=== PATIENT | female | born 1975 | race Caucasian/White ===

== ENCOUNTER → 2017-11-19 11:59 | Outpatient (CLI) | payer BC, SELFPAY ==
--- NOTE | 2017-11-19 11:59 | DT_ITS ---
This patient was seen during an EMR downtime November 18, 2017 - November 25, 2017. This patient may have a combination of paper and electronic documentation or all paper documentation. All documentation is viewable within the e-chart portion of [employer] for each patient visit.
[2017-11-25 20:25] LABS: BUN 7 mg/dL (7-18); Glucose 88 mg/dL (74-106)
[2017-11-25 20:26] LABS: ALB/GLOB Ratio 1.5 RATIO (0.9-2.4); AST(SGOT) 14 U/L (15-37); Alanine Aminotransfer ALT/SGPT 20 U/L (13-56); Alkaline Phosphatase 52 U/L (45-117); Anion Gap 9 (5-15); BUN/Creat Ratio 10.4 RATIO (10-20); Calcium,Total 8.5 mg/dL (8.5-10.1); Chloride 107 mmol/L (98-107); Creatinine, Serum 0.67 mg/dL (0.55-1.02); EST Glomerular Filtration Rate 103 mL/min (>60); Est Glom Filt Rate - Afr Amer 125 mL/min (>60); Globulin 2.7 g/dL (2.2-4.2); Potassium 4.3 mmol/L (3.5-5.1); Protein, Total 6.7 g/dL (6.4-8.2); Sodium Level 142 mmol/L (136-145); Thyroid Stim Hormone (TSH) < 0.01 uIU/mL (0.358-3.74)
== END ==
PROVIDERS: Visit Provider Internal Medicine Endocrinology, Diabetes & Metabolism
DX: E03.8 Other specified hypothyroidism (principal)
CPT/HCPCS: 80053; 84443

== ENCOUNTER 2018-03-05 09:55 | Emergency (ER) | payer BC, SELFPAY ==
[2018-03-05 09:56] VITALS: BP 129/83; PULSE 65; RESP 16; TEMP 36.2; O2SAT 100; BMI 29.2
--- NOTE | 2018-03-05 10:25 | VDLE_ITS ---
Reason For Study: pain RIGHT LEFT GSV is normal. CFV is compressible, spontaneous, phasic, CFV is compressible, spontaneous, phasic, competent, and demonstrates normal competent and demonstrates normal augmentation. augmentation. FV is compressible, spontaneous, phasic, competent and demonstrates normal augmentation. POP V is compressible, spontaneous, phasic, competent and demonstrates normal augmentation. T/P Trunk is compressible. PTV is compressible. RT PerV is compressible. Procedure Exam performed portable in ED. The exam was diagnostic. A preliminary report was called and/or faxed to Dr. Bee. Interpretation Summary There is no evidence of right lower extremity deep vein thrombosis. Right greater saphenous vein appears patent and compressible segmentally. Normal flow patterns left common femoral vein. Ordering Physician: Valencia Bee Performed By: Sandeep Go RVT
--- NOTE | 2018-03-05 11:02 | ED.VISSUMM ---
- ER Visit Summary Date of Service: 03/05/18 Chief Complaint: [Right calf pain] History of Present Illness: The patient is a 42 F [presents the emergency department complaint of right calf pain that started 2 days ago. Patient denies any significant trauma other than she may have slightly rested against the tailgate of a pickup truck when she was getting into a pickup truck about a week ago. Patient denies any chest pain or shortness of breath. Patient has some mild discomfort at rest. She denies recent travel or surgery. She is not on any hormone replacement. Patient is concerned because she has had a prior DVT in the right leg after surgery.] Physical Examination: [HEENT-PERRLA, EOMI. Cranial nerves II through XII grossly intact. TMs clear. Mucous membranes moist. No adenopathy. Cardiovascular-regular rate and rhythm without murmur or ectopy Lungs-clear to auscultation, chest wall stable without crepitus or subcu emphysema Abdomen-normoactive bowel sounds, soft, nontender, no rebound or rigidity, no peritoneal signs. Extremities-intact ?4, normal range of motion, normal pulses, atraumatic]. Right calf-patient has some mild tenderness to mid calf. No ropes or cords palpated. Positive Homans sign. Test Results: [Venous duplex of the right lower extremity obtained was negative for DVT.] Emergency Department Course and Treatment: [] Treatment Plan: [Patient advised use ibuprofen or Tylenol for discomfort. Patient to follow-up with her primary care physician in 5-7 days.] Disposition: [Discharged home in stable condition] Impression: [Right calf strain] This note was generated with [employer]* dictation software. It may contain incorrect words, spelling, and punctuation that were not noted in review of the chart prior to signing ED Disposition - Plan for ED Patient: Chief Complaint: Lower Extremity Injury Referrals: Kamar Sanchez DO [Primary Care Provider] -
--- NOTE | 2018-03-05 11:04 | ED.DEP ---
ED Disposition - Plan for ED Patient: Chief Complaint: Lower Extremity Injury Instructions: ED Strain Muscle Ext Referrals: Kamar Sanchez DO [Primary Care Provider] - 5-7 Days
== END 2018-03-05 11:46 | disposition home or self-care (01) ==
PROVIDERS: Emergency Provider Emergency Medicine; Family Provider Family Medicine; PCP Family Medicine
DX: S86.111A Strain of other muscle(s) and tendon(s) of posterior muscle group at lower leg level, right leg, initial encounter (principal); E03.9 Hypothyroidism, unspecified; Z86.718 Personal history of other venous thrombosis and embolism; Z79.899 Other long term (current) drug therapy; X58.XXXA Exposure to other specified factors, initial encounter; Y93.89 Activity, other specified; Y92.89 Other specified places as the place of occurrence of the external cause; Y99.8 Other external cause status
CPT/HCPCS: 93971; 99282

== ENCOUNTER → 2018-07-09 12:34 | Outpatient (CLI) | payer BC, SELFPAY ==
[2018-07-09 13:13] LABS: Vitamin D,25 Hydroxy 18.1 ng/mL (29.95-100.01)
[2018-07-09 13:17] LABS: ALB/GLOB Ratio 1.4 RATIO (0.9-2.4); AST(SGOT) 15 U/L (15-37); Alanine Aminotransfer ALT/SGPT 25 U/L (13-56); Albumin, Serum 4.1 g/dL (3.2-5.0); Alkaline Phosphatase 45 U/L (45-117); Anion Gap 6 (5-15); BUN 12 mg/dL (7-18); BUN/Creat Ratio 16.1 RATIO (10-20); Calcium,Total 8.7 mg/dL (8.5-10.1); Chloride 110 mmol/L (98-107); Creatinine, Serum 0.74 mg/dL (0.55-1.02); EST Glomerular Filtration Rate 91 mL/min (>60); Est Glom Filt Rate - Afr Amer 110 mL/min (>60); Glucose 81 mg/dL (74-106); Protein, Total 7.1 g/dL (6.4-8.2); Sodium Level 142 mmol/L (136-145); Thyroid Stim Hormone (TSH) 1.95 uIU/mL (0.358-3.74)
--- OUTSIDE RECORDS SUMMARY | 2018-09-10 11:39 | XMS RPT_ITS ---
:1975 Author Organization OHIP Care Team Providers Name Role Phone ANN-MARIE VILLASEÑOR Attending Unavailable ANN-MARIE VILLASEÑOR Referring Unavailable Kamar Sanchez Primary Care Unavailable ANN-MARIE VILLASEÑOR Attending Unavailable Kamar Sanchez Primary Care Unavailable Valencia Bee Attending Unavailable Antione Head Attending Unavailable Valencia Bee Referring Unavailable PROBLEMS PROBLEMS DATE TYPE CONDITION / CODE ATTENDING STATUS SOURCE 07/09/2018 Unknown E03.8 - Other ANN-MARIE VILLASEÑOR Active [facility] specified Community hypothyroidism / Hospital E03.8(ICD-10) Repository 07/09/2018 Unknown E55.9 - Vitamin D ANN-MARIE VILLASEÑOR Active [place] deficiency, Community unspecified / Hospital E55.9(ICD-10) Repository 04/08/2018 Unknown M79.661 - Pain in [place] Active [place] right lower leg / Community M79.661(ICD-10) Hospital Repository PROCEDURES PROCEDURES No Procedure Records FoundRESULTS RESULTS VITAMIN D,25 HYDROXY Collected: 07/09/2018 Status: F Source: [place] 9:10 AM [facility] REPOSITORY TYPE CODE TESTS RESULT OUT OF REFERENCE UNITS RANGE LAB L506.1000 29.95-100.01 ng/mL Low Vitamin D 18.1 25-OH Result Comment: Vitamin D 25(OH) Status Range Deficiency <20 ng/mL (50nmol/L) Insuffciency 20 - 30 ng/mL (50 - 75 nmol/L) Sufficiency 30 - 100 ng/mL (75 - 250 nmol/L) Toxicity >100 ng/mL (>250 nmol/L) Performed By: #### L506.1000 #### [facility] [place], [address] COMPREHENSIVE METABOLIC Collected: 07/09/2018 Status: F Source: [place] PROFIL 9:10 AM [facility] REPOSITORY TYPE CODE TESTS RESULT OUT OF RANGE REFERENCE UNITS LAB L501.0100 74-106 mg/dL Normal GLU 81 Result Comment: Please note revised GLUCOSE reference range effective 2017. LAB L501.1000 7-18 mg/dL Normal BUN 12 LAB L501.1100 0.55-1.02 mg/dL Normal CREAT,SERUM 0.74 Result Comment: The validity of the calculated GFR AND GFRAA in patients over 70 years has not been determined. Clinical correlation is essential. LAB L501.1110 >60 mL/min Normal EST GFR 91 Result Comment: Non- GFR Calc LAB L501.1115 >60 mL/min Normal EST GFR - AA 110 Result Comment: GFR Calc LAB L501.1300 10-20 RATIO Normal BUN/CRE 16.1 LAB L501.1500 6.4-8.2 g/dL T Normal PROT 7.1 LAB L501.1800 3.2-5.0 g/dL Normal ALB 4.1 LAB L501.1950 2.2-4.2 g/dL Normal GLOB 3.0 LAB L501.2000 0.9-2.4 RATIO Normal A/G 1.4 LAB L501.2200 8.5-10.1 mg/dL CA Normal 8.7 LAB L501.4100 15-37 U/L Normal AST 15 LAB L501.4305 45-117 U/L Normal ALK P 45 LAB L501.4405 13-56 U/L Normal ALT 25 LAB L501.4600 0.20-1.00 mg/dL T Normal BILI 0.50 LAB L501.5300 136-145 mmol/L NA Normal 142 LAB L501.5600 3.5-5.1 mmol/L K Normal 4.0 LAB L501.5900 98-107 mmol/L High CL 110 LAB L501.6100 21.0-32.0 mmol/L Normal CO2 26.0 LAB L501.6200 5-15 Normal GAP 6 Performed By: #### L500.4050, L501.9520 #### [facility] [address] [place], [address] THYROID STIM HORMONE Collected: 07/09/2018 Status: F Source: [place] (TSH) 9:10 AM [facility] REPOSITORY TYPE CODE TESTS RESULT OUT OF RANGE REFERENCE UNITS LAB L501.9520 0.358-3.74 uIU/mL Normal TSH 1.95 Performed By: #### L500.4050, L501.9520 #### [facility] [address] [place], [address] VENOUS DUPLEX LOWER Observed: 03/05/2018 Status: F Source: [place] EXTREMITY 4:29 PM [facility] REPOSITORY [place] [address] [facility] [address] Venous Duplex US, Unilateral 03/05/18 1047 MR#: [id number] Acct: [id number] Name: APOORVA WOO Rep #: [id number] : 1975 42 From: Antione Head MD Attending Dr: Status: DEP ER Ordering Dr: Valencia Bee DO Date: 03/05/18 Location: ED Sex: F C Admitted: Reason For Study: pain RIGHT LEFT GSV is normal. CFV is compressible, spontaneous, phasic, CFV is compressible, spontaneous, phasic, competent, and demonstrates normal competent and demonstrates normal augmentation. augmentation. FV is compressible, spontaneous, phasic, competent and demonstrates normal augmentation. POP V is compressible, spontaneous, phasic, competent and demonstrates normal augmentation. T/P Trunk is compressible. PTV is compressible. RT PerV is compressible. Procedure Exam performed portable in ED. The exam was diagnostic. A preliminary report was called and/or faxed to Dr. Bee. Interpretation Summary There is no evidence of right lower extremity deep vein thrombosis. Right greater saphenous vein appears patent and compressible segmentally. Normal flow patterns left common femoral vein. Ordering Physician: Valencia Bee Performed By: Sandeep Go RVT 03/05/188 Date Antione Head MD CC: Kamar Sanchez DO; Valencia Bee DO Date Dictated: 03/05/18 1047 Date Transcribed: 03/05/181627 Wrecking Mechanic: Signed DISCHARGE INSTRUCTION Observed: 03/05/2018 Status: F Source: [place] 11:05 AM [facility] Medical Records Department [address] [place] [address] [place] [address] Discharge Instruction 03/05/18 1104 MR#: [id number] Acct: [id number] Name: APOORVA WOO Rep #: [id number] : 1975 42 From: Valencia Bee DO PCP: Kamar Sanchez DO Status: REG ER ED Disposition - Plan for ED Patient: Chief Complaint: Lower Extremity Injury Instructions: ED Strain Muscle Ext Referrals: Kamar Sanchez DO [Primary Care Provider] - 5-7 Days What to do if you have Problems For any increased pain, shortness of breath, bleeding, nausea or vomiting, chest pain, or any unexpected problems, contact your Primary Care Provider. Call [facility] ([phone]) or report to the closest Emergency Room. Call 911 if necessary. 03/05/18 1105 <Electronically signed by Valencia Bee DO> Date Valencia Bee DO Cosigner Signature (If Indicated): Date CC: Kamar Sanchez DO EMERGENCY DEPARTMENT Observed: 03/05/2018 Status: F Source: [place] SUMMARY 11:04 [facility] Medical Records Department [address] [place] [address] Emergency Department Summary 03/05/18 1102 MR#: [id number] Acct: [id number] Name: APOORVA WOO Rep #: [id number] : 1975 42 From: Valencia Bee DO PCP: Kamar Sanchez DO Status: REG ER - ER Visit Summary Date of Service: 03/05/18 Chief Complaint: [Right calf pain] History of Present Illness: The patient is a 42 F [presents the emergency department complaint of right calf pain that started 2 days ago. Patient denies any significant trauma other than she may have slightly rested against the tailgate of a pickup truck when she was getting into a pickup truck about a week ago. Patient denies any chest pain or shortness of breath. Patient has some mild discomfort at rest. She denies recent travel or surgery. She is not on any hormone replacement. Patient is concerned because she has had a prior DVT in the right leg after surgery.] Physical Examination: [HEENT-PERRLA, EOMI. Cranial nerves II through XII grossly intact. TMs clear. Mucous membranes moist. No adenopathy. Cardiovascular-regular rate and rhythm without murmur or ectopy Lungs-clear to auscultation, chest wall stable without crepitus or subcu emphysema Abdomen-normoactive bowel sounds, soft, nontender, no rebound or rigidity, no peritoneal signs. Extremities-intact 4, normal range of motion, normal pulses, atraumatic]. Right calf-patient has some mild tenderness to mid calf. No ropes or cords palpated. Positive Homans sign. Test Results: [Venous duplex of the right lower extremity obtained was negative for DVT.] Emergency Department Course and Treatment: [] Treatment Plan: [Patient advised use ibuprofen or Tylenol for discomfort. Patient to follow-up with her primary care physician in 5-7 days.] Disposition: [Discharged home in stable condition] Impression: [Right calf strain] This note was generated with Ansible dictation software. It may contain incorrect words, spelling, and punctuation that were not noted in review of the chart prior to signing ED Disposition - Plan for ED Patient: Chief Complaint: Lower Extremity Injury Referrals: Kamar Sanchez DO [Primary Care Provider] - What to do if you have Problems For any increased pain, shortness of breath, bleeding, nausea or vomiting, chest pain, or any unexpected problems, contact your Primary Care Provider. Call [facility] ([phone]) or report to the closest Emergency Room. Call 911 if necessary. 03/05/18 1104 <Electronically signed by Valencia Bee DO> Date Valencia Bee DO Cosigner Signature (If Indicated): Date CC: Kamar Sanchez DO DOWNTIME REPORT Observed: 12/05/2017 Status: F Source: [place] 1:36 PM [facility] REPOSITORY [place] Medical Records Department [address] [place] [address] Downtime Report MR#: [id number] Acct: [id number] Name: APOORVA WOO Rep #: [id number] : 1975 42 From: James Alvarez PCP: Status: REG CLI This patient was seen during an EMR downtime November 18, 2017 - November 25, 2017. This patient may have a combination of paper and electronic documentation or all paper documentation. All documentation is viewable within the e-chart portion of [employer] for each patient visit. COMPREHENSIVE METABOLIC Collected: 11/19/2017 Status: F Source: [place] PROFIL 11:59 AM [facility] REPOSITORY Order Comment: RESULT(S) PREVIOUSLY REPORTED ON MANUAL REQUISITION DURING DOWNTIME. TYPE CODE TESTS RESULT OUT OF RANGE REFERENCE UNITS LAB L501.0100 74-106 mg/dL Normal GLU 88 Result Comment: Please note revised GLUCOSE reference range effective 2017. LAB L501.1000 7-18 mg/dL Normal BUN 7 LAB L501.1100 0.55-1.02 mg/dL Normal CREAT,SERUM 0.67 Result Comment: The validity of the calculated GFR AND GFRAA in patients over 70 years has not been determined. Clinical correlation is essential. LAB L501.1110 >60 mL/min Normal EST GFR 103 LAB L501.1115 >60 mL/min Normal EST GFR - AA 125 LAB L501.1300 10-20 RATIO Normal BUN/CRE 10.4 LAB L501.1500 6.4-8.2 g/dL Normal T PROT 6.7 LAB L501.1800 3.2-5.0 g/dL Normal ALB 4.0 LAB L501.1950 2.2-4.2 g/dL Normal GLOB 2.7 LAB L501.2000 0.9-2.4 RATIO Normal A/G 1.5 LAB L501.2200 8.5-10.1 mg/dL Normal CA 8.5 LAB L501.4100 15-37 U/L Low AST 14 LAB L501.4305 45-117 U/L Normal ALK P 52 LAB L501.4405 13-56 U/L Normal ALT 20 LAB L501.4600 0.20-1.00 mg/dL Normal T BILI 0.30 LAB L501.5300 136-145 mmol/L Normal NA 142 LAB L501.5600 3.5-5.1 mmol/L Normal K 4.3 LAB L501.5900 98-107 mmol/L Normal CL 107 LAB L501.6100 21.0-32.0 mmol/L Normal CO2 26.0 LAB L501.6200 5-15 Normal GAP 9 Performed By: #### L500.4050, L501.9520 #### [facility] [address] [facility] [place], [address] THYROID STIM HORMONE Collected: 11/19/2017 Status: F Source: [place] (TSH) 11:59 AM [facility] REPOSITORY Order Comment: RESULT(S) PREVIOUSLY REPORTED ON MANUAL REQUISITION DURING DOWNTIME. TYPE CODE TESTS RESULT OUT OF RANGE REFERENCE UNITS LAB L501.9520 0.358-3.74 uIU/mL Low TSH < 0.01 Performed By: #### L500.4050, L501.9520 #### [facility] [address] [facility] [place], [address] PROGRESS Observed: 10/09/2017 Status: COMPLETED Source: [place] 10:[address] [facility] REPOSITORY HNO ID: [id number] Author: Silva Ng Service: (none) Author Type: Nurse Practitioner Type: Progress Notes Filed: 10/09/2017 10:46 AM Note Text: Subjective HPI HPI February Diane Woo is a 42 year old female who presents today for CC of cough, nasal pressure. This started almost 3 weeks ago. Has tried otc medication. Symptoms are worsened by nothing. Risk factors sick exposures at work. .Patient presents with: fever, cough, ST and head and chest congestion: x almost 3 weeks PAST MEDICAL HISTORY Diagnosis Date - Chronic interstitial cystitis PAST SURGICAL HISTORY Procedure Laterality Date - LIGATE FALLOPIAN TUBE Tubal ligation - PAST SURGICAL HISTORY OF 2000 reconstructive jaw surgery - PAST SURGICAL HISTORY OF 2004, 2007 TMJ surgery ALLERGIES Morphine; Sulfa (Sulfonamide Antibiotics) MEDICATIONS levothyroxine (LEVOTHROID) 100 mcg tablet Take 100 mcg by mouth daily before breakfast. FAMILY HISTORY Problem Relation Age of Onset - Hypertension Father - Diabetes Mother - Breast Cancer Paternal Grandmother Social History Substance Use Topics - Smoking status: Former Smoker - Smokeless tobacco: Never Used Comment: quit 08/09/2007 - Alcohol use Yes Comment: occasional Review of Systems Constitutional: Negative for chills, fever and weight loss. HENT: Positive for congestion and sore throat. Negative for ear pain and nosebleeds. Respiratory: Positive for cough. Negative for shortness of breath and wheezing. Cardiovascular: Negative for chest pain. Musculoskeletal: Negative for neck pain. Objective Blood pressure 102/68, pulse 90, temperature 36.8 ?C (98.3 ?F), temperature source Tympanic, resp. rate 18, weight 68.4 kg (150 lb 12.8 oz), SpO2 97 %. Physical Exam Constitutional: She is oriented to person, place, and time and well-developed, well-nourished, and in no distress. Non-toxic appearance. She has a sickly appearance (mild). No distress. HENT: Head: Normocephalic and atraumatic. Right Ear: Hearing, tympanic membrane, external ear and ear canal normal. Left Ear: Hearing, tympanic membrane, external ear and ear canal normal. Nose: Right sinus exhibits maxillary sinus tenderness. Left sinus exhibits maxillary sinus tenderness. Mouth/Throat: Uvula is midline, oropharynx is clear and moist and mucous membranes are normal. Eyes: Conjunctivae and lids are normal. Pupils are equal, round, and reactive to light. Right eye exhibits no discharge. Left eye exhibits no discharge. No scleral icterus. Neck: Trachea normal and normal range of motion. Neck supple. Cardiovascular: Normal rate, regular rhythm and normal heart sounds. Pulmonary/Chest: Effort normal and breath sounds normal. Lymphadenopathy: She has no cervical adenopathy. Neurological: She is alert and oriented to person, place, and time. Skin: No rash noted. She is not diaphoretic. ASSESSMENT/PLAN: 1. Sinobronchitis - ICD9: 473.9, 490, ICD10: J32.9, J40 - Will begin treatment with Doxycline - Supportive care with plenty of fluids, rest, and analgesia prn. - Follow up in 3-5 days if symptoms persist or worsen. - DOXYCYCLINE MONOHYDRATE 100 MG TABLET - PREDNISONE 20 MG TABLET Prescription instructions reviewed with patient as applicable. Patient advised if symptoms do not improve or if symptoms worsen sooner, to contact the office for further evaluation by their primary care physician. Potential red flag symptoms discussed with the patient. Reviewed appropriate action plan to take if red flag symptoms occur. Patient agreeable to treatment plan. Silva Ng APRN.CNP CNOV Observed: 10/09/2017 Status: COMPLETED Source: [place] 10:[address] [facility] REPOSITORY Office Visit (WSTR) APOORVA WOO ([id number]) 1975 F Date Time Provider Department 10/09/17 10:00 AM SILVA NG (RASHIDA) [facility] During your visit today, we recorded the following information about you: Temperature Pulse Respiration Blood pressure 98.3 degrees 90/minute 18/minute 102/68 Weight 68.4 kg Silva Ng APRN.CNP 10/09/2017 10:46 AM Signed Subjective HPI HPI Apoorva M Tonny is a 42 year old female who presents today for CC of cough, nasal pressure. This started almost 3 weeks ago. Has tried otc medication. Symptoms are worsened by nothing. Risk factors sick exposures at work. .Patient presents with: fever, cough, ST and head and chest congestion: x almost 3 weeks PAST MEDICAL HISTORY Diagnosis Date - Chronic interstitial cystitis PAST SURGICAL HISTORY Procedure Laterality Date - LIGATE FALLOPIAN TUBE Tubal ligation - PAST SURGICAL HISTORY OF 2000 reconstructive jaw surgery - PAST SURGICAL HISTORY OF 2004, 2007 TMJ surgery ALLERGIES Morphine; Sulfa (Sulfonamide Antibiotics) MEDICATIONS levothyroxine (LEVOTHROID) 100 mcg tablet Take 100 mcg by mouth daily before breakfast. FAMILY HISTORY Problem Relation Age of Onset - Hypertension Father - Diabetes Mother - Breast Cancer Paternal Grandmother Social History Substance Use Topics - Smoking status: Former Smoker - Smokeless tobacco: Never Used Comment: quit 08/09/2007 - Alcohol use Yes Comment: occasional Review of Systems Constitutional: Negative for chills, fever and weight loss. HENT: Positive for congestion and sore throat. Negative for ear pain and nosebleeds. Respiratory: Positive for cough. Negative for shortness of breath and wheezing. Cardiovascular: Negative for chest pain. Musculoskeletal: Negative for neck pain. Objective Blood pressure 102/68, pulse 90, temperature 36.8 ?C (98.3 ?F), temperature source Tympanic, resp. rate 18, weight 68.4 kg (150 lb 12.8 oz), SpO2 97 %. Physical Exam Constitutional: She is oriented to person, place, and time and well-developed, well-nourished, and in no distress. Non-toxic appearance. She has a sickly appearance (mild). No distress. HENT: Head: Normocephalic and atraumatic. Right Ear: Hearing, tympanic membrane, external ear and ear canal normal. Left Ear: Hearing, tympanic membrane, external ear and ear canal normal. Nose: Right sinus exhibits maxillary sinus tenderness. Left sinus exhibits maxillary sinus tenderness. Mouth/Throat: Uvula is midline, oropharynx is clear and moist and mucous membranes are normal. Eyes: Conjunctivae and lids are normal. Pupils are equal, round, and reactive to light. Right eye exhibits no discharge. Left eye exhibits no discharge. No scleral icterus. Neck: Trachea normal and normal range of motion. Neck supple. Cardiovascular: Normal rate, regular rhythm and normal heart sounds. Pulmonary/Chest: Effort normal and breath sounds normal. Lymphadenopathy: She has no cervical adenopathy. Neurological: She is alert and oriented to person, place, and time. Skin: No rash noted. She is not diaphoretic. ASSESSMENT/PLAN: 1. Sinobronchitis - ICD9: 473.9, 490, ICD10: J32.9, J40 - Will begin treatment with Doxycline - Supportive care with plenty of fluids, rest, and analgesia prn. - Follow up in 3-5 days if symptoms persist or worsen. - DOXYCYCLINE MONOHYDRATE 100 MG TABLET - PREDNISONE 20 MG TABLET Prescription instructions reviewed with patient as applicable. Patient advised if symptoms do not improve or if symptoms worsen sooner, to contact the office for further evaluation by their primary care physician. Potential red flag symptoms discussed with the patient. Reviewed appropriate action plan to take if red flag symptoms occur. Patient agreeable to treatment plan. Silva Ng APRN.RASHIDA Ng APRN.CNP 10/09/2017 10:33 AM Signed ASSESSMENT/PLAN: 1. Sinobronchitis - ICD9: 473.9, 490, ICD10: J32.9, J40 - Will begin treatment with Doxycline - Supportive care with plenty of fluids, rest, and analgesia prn. - Follow up in 3-5 days if symptoms persist or worsen. - DOXYCYCLINE MONOHYDRATE 100 MG TABLET - PREDNISONE 20 MG TABLET Referring Provider: SELF [200] Allergies As of Date: 10/09/2017 Noted Allergy Reaction MORPHINE 09/08/2008 SULFA (SULFONAMIDE ANTIBIOTICS) 08/22/2007 Date Reviewed: 10/09/2017 Reviewed by: Silva (Rashida) - Fully Assessed Reason for Visit: fever, cough, ST and head and chest congestion [Other] Cmt: x almost 3 weeks Primary Visit Diagnosis:Sinobronchitis [J32.9, J40] Order(s):doxycycline monohydrate 100 mg tabletTake 1 tablet by mouth twice daily.Disp: 20 tabletRfl: 0 predniSONE (DELTASONE) 20 mg tabletTake 2 tablets by mouth once daily for 5 days.Disp: 10 tabletRfl: 0 Prescriptions as of 10/09/2017 Sig: LEVOTHYROXINE 100 MCG TABLET Take 100 mcg by mouth daily b* DOXYCYCLINE MONOHYDRATE 100 M* Take 1 tablet by mouth twice * PREDNISONE 20 MG TABLET Take 2 tablets by mouth once * Problem List As Of Date 10/09/2017 Noted Resolved Nipple discharge [N64.52] INVALID FOR* Other instructions from your clinician: ASSESSMENT/PLAN: 1. Sinobronchitis - ICD9: 473.9, 490, ICD10: J32.9, J40 - Will begin treatment with Doxycline - Supportive care with plenty of fluids, rest, and analgesia prn. - Follow up in 3-5 days if symptoms persist or worsen. - DOXYCYCLINE MONOHYDRATE 100 MG TABLET - PREDNISONE 20 MG TABLET Prescriptions ordered this encounter Disp Refills Start End DOXYCYCLINE MONOHYDRATE 100 MG TABLET 20 t* 0 10/09/2017 Cmt: May transfer to [facility] if less expensive. Route: ORAL Sig: Take 1 tablet by mouth twice daily. PREDNISONE 20 MG TABLET 10 t* 0 10/09/2017 10/14/2017 Route: ORAL Sig: Take 2 tablets by mouth once daily for 5 days. Letter Text [facility] Silva Ng CNP [address] [place], [place] [address] 10/09/2017 Apoorva Woo [facility]# [id number] [facility] [address] TO WHOM IT MAY CONCERN: This is to confirm that Apoorva Woo had an appointment and was seen at the [facility] in the Department of Urgent Care by iSlva Ng CNP on 10/09/2017. Sincerely yours, Silva Ng CNP Encounter Status:Closed by SILVA NG CNP on 10/09/17 ALLERGIES ALLERGIES DATE TYPE / CODE NAME / CODE REACTION SEVERITY SOURCE 03/05/2018 Drug Sulfa Hives Unknown [facility] Allergy/416 (Sulfonamide Hospital 533487(SNOM Antibiotics)/F0 Repository ED CT) 20513379(RXNORM ) 03/05/2018 Drug morphine/S22930 Other Unknown [facility] Allergy/416 1545(RXNORM) Hospital 952603(SNOM Repository ED CT) 09/08/2008 DRUG MORPHINE [facility] INGREDI/419 [address] [place] [address]27(SNOM Repository ED CT) 08/22/2007 Drug SULFA [facility] Class/07087 (SULFONAMIDE [place] 1003(SNOMED ANTIBIOTICS) Repository CT) ENCOUNTERS ENCOUNTERS ADMIT/DISCHARGE ACCOUNT ADMITTING ENCOUNTER LOCATION SOURCE NUMBER CLASS 07/09/2018 [id number] Ambulatory [facility] ing:LABSPEC Repository 03/05/2018/03/05/20 [id number] Emergency [address] ing:ED Repository 03/05/2018/03/05/20 [id number] Ambulatory BMSBuilding:[address] Repository 11/19/2017 [id number] Ambulatory [facility] ing:LABSPEC Repository 10/09/2017/10/11/19 [id number] Ambulatory [address] Repository PAYERS PAYERS ENCOUNTER GUARANTOR PAYER SUBSCRIBER SOURCE 07/09/2018 APOORVA Contreras Primary APOORVA [id number] Insurance:ANTHEMPolic DROUHARDDOB: [facility] y [place]: [id number] [id number] Repository [address]Ngb: (330) Date:8249-13-70LN [phone] () [id number] ZAPATA [address]12[address]EA: 07/09/2018 Secondary NOT GIVENUNK [place] Insurance:SELF PAY [facility] Number: Effective Repository Date:2018-07-09 03/05/2018 APOORVA M Primary APOORVA M [facility] [place] [id number] Insurance:ANTHEMPolic DROUHARDDOB: [facility] y Number: [id number] [id number] Repository [address]Ion: (330) Date:8740-32-66UR [phone] () [id number] ZAPATA [address]EW: 03/05/2018 Secondary NOT GIVENUNK [place] Insurance:SELF PAY [facility] Number: Effective Repository Date:2018-03-05 03/05/2018 APOORVA M Primary APOORVA M [place] [id number] Insurance:ANTHEMPolic DROUHARDDOB: [facility] y Number: [id number] [facility] [id number] Repository [address]Qzg: (330) Date:6607-88-27FG [phone] () [id number], [place] [address]YY: 03/05/2018 Secondary NOT GIVENUNK [place] Insurance:SELF PAY [facility] Number: Effective Repository Date:2018-03-05 11/19/2017 Apoorva M Primary APOORVA M [place] [id number] Insurance:ANTHEMPolic DROUHARDDOB: [facility] y Number: [id number] Colorado Long Term Acute [id number] Repository [address]Bll: (330) Date:7341-10-90JB [phone] () [id number], [place] [address]PJ: 11/19/2017 Secondary NOT GIVENUNK [place] Insurance:SELF PAY [facility] Number: Effective Repository Date:2017-11-19
== END ==
PROVIDERS: Family Provider Family Medicine; PCP Family Medicine; Referring Provider Internal Medicine Endocrinology, Diabetes & Metabolism; Visit Provider Internal Medicine Endocrinology, Diabetes & Metabolism
DX: E03.8 Other specified hypothyroidism (principal); E55.9 Vitamin D deficiency, unspecified
CPT/HCPCS: 80053; 82306; 84443

== ENCOUNTER → 2018-09-11 13:16 | Outpatient (CLI) | payer BC, SELFPAY ==
[2018-09-11 13:55] LABS: ALB/GLOB Ratio 1.8 RATIO (0.9-2.4); AST(SGOT) 24 U/L (15-37); Alanine Aminotransfer ALT/SGPT 26 U/L (13-56); Albumin, Serum 4.2 g/dL (3.2-5.0); Alkaline Phosphatase 39 U/L (45-117); Anion Gap 3 (5-15); BUN 11 mg/dL (7-18); BUN/Creat Ratio 16.6 RATIO (10-20); Calcium,Total 8.7 mg/dL (8.5-10.1); Chloride 107 mmol/L (98-107); Creatinine, Serum 0.66 mg/dL (0.55-1.02); EST Glomerular Filtration Rate 103 mL/min (>60); Est Glom Filt Rate - Afr Amer 125 mL/min (>60); Globulin 2.4 g/dL (2.2-4.2); Glucose 76 mg/dL (74-106); Protein, Total 6.6 g/dL (6.4-8.2); Sodium Level 138 mmol/L (136-145); Thyroid Stim Hormone (TSH) 2.67 uIU/mL (0.358-3.74)
[2018-09-11 13:59] LABS: Vitamin D,25 Hydroxy 49.4 ng/mL (29.95-100.01)
== END ==
PROVIDERS: Family Provider Family Medicine; PCP Family Medicine; Referring Provider Internal Medicine Endocrinology, Diabetes & Metabolism; Visit Provider Internal Medicine Endocrinology, Diabetes & Metabolism
DX: E03.8 Other specified hypothyroidism (principal); E55.9 Vitamin D deficiency, unspecified
CPT/HCPCS: 80053; 82306; 84443

== ENCOUNTER → 2018-10-02 | Outpatient (CLI) | payer BC, SELFPAY ==
--- NOTE | 2018-10-02 15:49 | BI_ITS ---
MAMMOGRAPHY - BILATERAL SCREENING REASON FOR EXAM: Female, 43 years old. Routine annual screening examination. PERTINENT HISTORY: Grandmother with breast cancer. TECHNIQUE: Digital bilateral breast kaur (3D mammographic acquisition) in the CC and MLO projections. 2-D mediolateral oblique (MLO) and craniocaudad (CC) views of both breasts were obtained. CAD: Full Field Digital Mammography with Computer Added Detection was performed. COMPARISON: Comparison is made with prior study dated May 24, 2015 and January 26, 2014. FINDINGS: Breast Composition: The breasts are heterogeneously dense, which may obscure small masses. There are no dominant masses or suspicious calcifications. No other significant abnormalities are identified. There has been no significant change since the prior study. BI/SCREENING MAMM (CAD), BILAT IMPRESSION: Stable bilateral screening mammogram. Yearly follow-up mammogram recommended. (A) ASSESSMENT CATEGORY: BIRADS Category 1: Negative. A letter regarding these results will be sent to the patient by the facility within 30 days. Approximately 10% of breast cancers are not detected by mammography. A normal mammogram should not delay biopsy of a clinically suspicious abnormality. [id number] Electronically Signed: Parth Bowling, at 10:01 EDT , Service support ,
== END | disposition home or self-care (01) ==
LOC: OPBI 15:46
PROVIDERS: Family Provider Family Medicine; PCP Family Medicine; Referring Provider Obstetrics & Gynecology; Visit Provider Obstetrics & Gynecology
DX: Z12.31 Encounter for screening mammogram for malignant neoplasm of breast (principal)
CPT/HCPCS: 77063; 77067

== ENCOUNTER → 2018-10-09 | Outpatient (CLI) | payer BC, SELFPAY ==
[2018-10-15 09:21] LABS: HPV Reflexed? NOT INDICATED
== END | disposition home or self-care (01) ==
LOC: WOBLAB 13:55
PROVIDERS: Family Provider Family Medicine; PCP Family Medicine; Visit Provider Obstetrics & Gynecology
DX: Z12.4 Encounter for screening for malignant neoplasm of cervix (principal)
CPT/HCPCS: 87624; 88175; G0145

== ENCOUNTER → 2018-11-20 | Outpatient (CLI) | payer BC, SELFPAY ==
[2018-11-20 14:43] LABS: Thyroid Stim Hormone (TSH) 0.77 uIU/mL (0.358-3.74)
== END | disposition home or self-care (01) ==
LOC: LABSPEC 13:42
PROVIDERS: Family Provider Family Medicine; PCP Family Medicine; Visit Provider Family Medicine
DX: E03.8 Other specified hypothyroidism (principal)
CPT/HCPCS: 84443

== ENCOUNTER → 2019-02-14 | Outpatient (CLI) | payer BC, SELFPAY ==
[2019-02-14 08:48] LABS: ALB/GLOB Ratio 1.3 RATIO (0.9-2.4); AST(SGOT) 11 U/L (15-37); Alanine Aminotransfer ALT/SGPT 20 U/L (13-56); Albumin, Serum 3.8 g/dL (3.2-5.0); Alkaline Phosphatase 44 U/L (45-117); Anion Gap 7 (5-15); BUN 8 mg/dL (7-18); BUN/Creat Ratio 10.3 RATIO (10-20); Calcium,Total 8.5 mg/dL (8.5-10.1); Chloride 110 mmol/L (98-107); Creatinine, Serum 0.78 mg/dL (0.55-1.02); EST Glomerular Filtration Rate 86 mL/min (>60); Est Glom Filt Rate - Afr Amer 104 mL/min (>60); Globulin 2.9 g/dL (2.2-4.2); Glucose 83 mg/dL (74-106); Potassium 3.7 mmol/L (3.5-5.1); Protein, Total 6.7 g/dL (6.4-8.2); Sodium Level 141 mmol/L (136-145); Thyroid Stim Hormone (TSH) 0.94 uIU/mL (0.358-3.74)
[2019-02-17 10:21] LABS: Vitamin D,25 Hydroxy 23.7 ng/mL (29.95-100.01)
== END | disposition home or self-care (01) ==
LOC: LAB 07:25
PROVIDERS: Family Provider Family Medicine; PCP Family Medicine; Referring Provider Internal Medicine Endocrinology, Diabetes & Metabolism; Visit Provider Internal Medicine Endocrinology, Diabetes & Metabolism
DX: E03.8 Other specified hypothyroidism (principal); E55.9 Vitamin D deficiency, unspecified
CPT/HCPCS: 36415; 80053; 82306; 84443

== ENCOUNTER → 2019-07-23 | Outpatient (CLI) | payer BC, SELFPAY ==
[2019-07-23 13:29] LABS: ALB/GLOB Ratio 1.3 RATIO (0.9-2.4); AST(SGOT) 15 U/L (15-37); Alanine Aminotransfer ALT/SGPT 33 U/L (13-56); Albumin, Serum 4.3 g/dL (3.2-5.0); Alkaline Phosphatase 42 U/L (45-117); Anion Gap 6 (5-15); BUN 11 mg/dL (7-18); Calcium,Total 8.9 mg/dL (8.5-10.1); Chloride 108 mmol/L (98-107); Creatinine, Serum 0.79 mg/dL (0.55-1.02); EST Glomerular Filtration Rate 85 mL/min (>60); Est Glom Filt Rate - Afr Amer 103 mL/min (>60); Globulin 3.2 g/dL (2.2-4.2); Glucose 84 mg/dL (74-106); Potassium 3.7 mmol/L (3.5-5.1); Protein, Total 7.5 g/dL (6.4-8.2); Sodium Level 139 mmol/L (136-145); Thyroid Stim Hormone (TSH) 3.63 uIU/mL (0.358-3.74)
[2019-07-23 14:18] LABS: Vitamin D,25 Hydroxy 53.2 ng/mL (29.95-100.01)
== END | disposition home or self-care (01) ==
LOC: LABSPEC 12:24
PROVIDERS: PCP Family Medicine; Referring Provider Internal Medicine Endocrinology, Diabetes & Metabolism; Visit Provider Internal Medicine Endocrinology, Diabetes & Metabolism
DX: E03.8 Other specified hypothyroidism (principal); E55.9 Vitamin D deficiency, unspecified
CPT/HCPCS: 80053; 82306; 84443

== ENCOUNTER → 2019-08-08 | Outpatient (CLI) | payer BC, SELFPAY ==
--- NOTE | 2019-08-08 08:39 | US_ITS ---
STUDY: ABDOMINAL ULTRASOUND REASON FOR EXAM: Female, 44 years old. RUQ AND EPIGASTRIC PAIN FEW YEARS INCREASING LATELY TECHNIQUE: Transabdominal ultrasound was performed with real-time and static moreland scale imaging. TECHNICAL QUALITY: Adequate. COMPARISON: None. FINDINGS: Liver: The liver measures 14.8 cm. There is normal echogenicity of the liver. The bile ducts are within normal limits. There is hepatic color flow. The direction of portal flow is hepatopetal. 6 mm round hyperechoic lesion in the subcapsular left lobe of the liver consistent with a tiny hemangioma. Portal vein measurement: Gallbladder: Normal distended gallbladder. The gallbladder wall measures 2 mm. There is a negative sonographic Burrows''s sign. There is no pericholecystic fluid. There are no gallstones. Common Bile Duct (C.B.D.): The common bile duct measures 4 mm. Pancreas: Normal size of the head, body and tail of the pancreas. There is normal echogenicity of the pancreas. There is no demonstrated pancreatic mass or cyst. Spleen: Normal size of the spleen. The spleen measures 11.2 cm. Right Kidney: Normal size of the right kidney. The right kidney measures 10.8 cm. Normal renal cortex. The right cortex measures 1.4 cm. There is no demonstrated renal mass or cyst. There is no right hydronephrosis. Left Kidney: Normal size of the left kidney. The left kidney measures 10.2 cm. Normal renal cortex. The left cortex measures 1.1 cm. There is no demonstrated renal mass or cyst. There is no left hydronephrosis. Aorta: No abdominal aortic aneurysm. I.V.C.: The IVC is patent. There is no ascites. US/Abdomen Complete IMPRESSION: Normal abdominal ultrasound examination. Tiny hemangioma the left lobe of the liver. Electronically Signed: Bhupinder Brock MD at 16:28 EST Tel , Service support ,
== END | disposition home or self-care (01) ==
PROVIDERS: PCP Family Medicine; Referring Provider Internal Medicine Endocrinology, Diabetes & Metabolism; Visit Provider Internal Medicine Endocrinology, Diabetes & Metabolism
DX: R10.816 Epigastric abdominal tenderness (principal)
CPT/HCPCS: 76700

== ENCOUNTER → 2019-09-29 | Outpatient (CLI) | payer BC, SELFPAY ==
[2019-09-29 09:15] LABS: ALB/GLOB Ratio 1.4 RATIO (0.9-2.4); AST(SGOT) 13 U/L (15-37); Alanine Aminotransfer ALT/SGPT 26 U/L (13-56); Albumin, Serum 4.2 g/dL (3.2-5.0); Alkaline Phosphatase 43 U/L (45-117); Anion Gap 3 (5-15); BUN 10 mg/dL (7-18); BUN/Creat Ratio 13.9 RATIO (10-20); Calcium,Total 9.1 mg/dL (8.5-10.1); Chloride 107 mmol/L (98-107); Creatinine, Serum 0.72 mg/dL (0.55-1.02); EST Glomerular Filtration Rate 94 mL/min (>60); Est Glom Filt Rate - Afr Amer 114 mL/min (>60); Globulin 3.1 g/dL (2.2-4.2); Glucose 89 mg/dL (74-106); Protein, Total 7.3 g/dL (6.4-8.2); Sodium Level 138 mmol/L (136-145); Thyroid Stim Hormone (TSH) 1.57 uIU/mL (0.358-3.74)
== END | disposition home or self-care (01) ==
LOC: LABSPEC 08:47
PROVIDERS: PCP Family Medicine; Referring Provider Nurse Practitioner Adult Health; Visit Provider Nurse Practitioner Adult Health
DX: E03.8 Other specified hypothyroidism (principal)
CPT/HCPCS: 80053; 84443

== ENCOUNTER 2019-10-26 12:45 | Emergency (ER) | payer BC, SELFPAY ==
[2019-10-26 12:47] VITALS: BP 135/81; PULSE 84; RESP 12; TEMP 36.9; O2SAT 100; BMI 26.9
--- NOTE | 2019-10-26 13:06 | EKG12_ITS ---
Test Reason : CP Blood Pressure : / mmHG Vent. Rate : 077 BPM Atrial Rate : 077 BPM P-R Int : 120 ms QRS Dur : 088 ms QT Int : 376 ms P-R-T Axes : -12 070 036 degrees QTc Int : 425 ms Normal sinus rhythm Nonspecific ST abnormality Abnormal ECG Confirmed by ROJAS HIDALGO ([id number]), multimedia editor GLENN COLLIER ([id number]) on 11/02/2019 1:44:34 PM Referred By: KIA Confirmed By:ROJAS HIDALGO
--- NOTE | 2019-10-26 13:06 | CT_ITS ---
STUDY: CTA CHEST REASON FOR EXAM: Female, 44 years old. CHEST PAIN. H/O PE. SHORTNESS OF BREATH, A LITTLE COUGH. RADIATION DOSAGE (If Supplied By Facility): CTDIvol = ( 9.50 ) mGy, DLP = ( 324.19 ) mGycm TECHNIQUE: The examination was performed with the intravenous administration of IV 100 ML ISOVUE 370. Post-processing of the angiographic images was performed, with multiplanar reformation and 3D reconstruction. Individualized dose optimization techniques were used for this CT. COMPARISON: Comparison is made with prior study dated May 22, 2017. FINDINGS: Normal enhancement of the main pulmonary artery and right and left pulmonary arteries. Normal enhancement of the bilateral peripheral pulmonary arteries. There is no demonstrated pulmonary embolism. Normal thoracic aorta and visualized great vessels. There is no demonstrated aortic dissection. Normal heart and pericardium. Normal mediastinum. Normal hilar regions. Normal visualized trachea and bronchi. The lungs are well expanded. Normal pulmonary parenchyma. Normal pleura. Normal chest wall structures. There are degenerative changes of thoracic spine. Normal visualized upper abdomen. CT/CTA Chest W/WO Contrast IMPRESSION: Normal CTA chest examination, without a demonstrated pulmonary embolism or arterial dissection. Electronically Signed: Parth Bowling, at 14:33 EDT , Service support ,
--- NOTE | 2019-10-26 13:14 | ED.VIS.GEN ---
History of Present Illness Chief Complaint: Chest Pain Informant: Patient Narrative: Patient states that beginning last Saturday she has been experiencing a sharp intermittent midsternal chest pain. Is made worse with deep inspiration. She states that she had a pulmonary embolism several years ago following a foot surgery. She subsequently was diagnosed with protein S deficiency. She is not currently on any anticoagulation. Her uncle around the age of 53 from [place]. She notes fatigue particularly with exertion. She does note that some shortness of breath as well as a slight cough. No fevers. No phlegm production. No indigestion. Past Medical History - Allergies and Home Meds Allergies/Adverse Reactions: Allergies Sulfa (Sulfonamide Antibiotics) Allergy (Verified 03/05/18 09:56) Hives morphine Adverse Reaction (Verified 03/05/18 09:56) Other Primary Care Physician: Kamar Sanchez DO [Primary Care Provider] - Smoking Status: Former smoker Review of Systems General: Reports: Malaise. Denies: Chills, Fever, Sweats Eyes: Denies: Visual changes - bilaterally, Diplopia ENT: Denies: Rhinorrhea, Sore throat Cardiovascular: Reports: Chest pain. Denies: Palpitations Respiratory: Reports: Dyspnea, Cough, Dyspnea on exertion Gastrointestinal: Denies: Abdominal pain, Nausea, Vomiting, Diarrhea, Melena, Hematochezia Genitourinary: Denies: Dysuria, Hematuria, Frequency Musculoskeletal: Denies: Back pain, Extremity Pain Skin: Denies: Rash, Wounds Neurological: Denies: Headache, Weakness, Numbness Physical Exam Vital Signs/Narrative: Vital Signs Temp Pulse Resp BP Pulse Ox 10/26/19 12:47 98.5 F 84 12 135/81 H 100 General: Well nourished, Well developed, No Acute Distress Head: Normocephalic, Atraumatic Eyes: Perrl, EOMI ENT: Moist mucous membranes, No rhinorrhea Neck: Supple, Nontender Cardiovascular: Regular rate, Regular rhythm, No murmurs Respiratory: No distress, CTA bilaterally, Chest nontender Abdomen: Soft, Nontender, Nondistended, Normal bowel sounds Back: Nontender, Normal Inspection Extremities: Nontender, No edema Skin: Normal color, No rash Neurological: Alert, Oriented x3, Cranial nerves II-XII grossly intact, Normal Strength, Normal Sensation Psychological: Normal affect, Normal Mood Diagnostic/Tx/Re-eval - EKG Initial EKG Interpretation: Sinus Rhythm - EKG demonstrates a normal sinus rhythm at a rate of 77. This appears grossly unchanged from 22 May 2017. - Medical Decision Making EKG cardiac enzymes were normal. SEPIDEH score is 0 heart score is 1. CTA of the chest was obtained. Care the patient will be assigned to the oncoming physician for check of CT report and final disposition. If her CT is negative I would anticipate a home discharge with early PCP follow-up for further cardiac testing. ED Disposition - Plan for ED Patient: Disposition: Home or Assisted Living Diagnosis: Chest pain, Protein S deficiency Instructions: ED Chest Pain Atypical Unkn Cause Referrals: Kamar Sanchez DO [Primary Care Provider] - 1 Week
[2019-10-26 13:31] LABS: Absolute Lymphocyte Count 2.17 X10^3/uL (0.83-4.51); Absolute Neutrophil Count 3.9 X10^3/uL (2.0-7.7); Basophil# 0.04 X10^3/uL; Basophil% 0.6 % (0-1); Eosinophil# 0.08 X10^3/uL; Eosinophils% 1.2 % (0-5); Hematocrit 42.4 % (37-47); Lymphocyte # 2.17 X10^3/ul (4.0); Lymphocyte % 32.5 % (19-41); Mean Corpuscular Hgb 29.8 pg (27.0-32.0); Mean Corpuscular Volume 90.2 fL (81-99); Mean Platelet Vol. 8.4 fl (6.2-12.0); Monocyte# 0.45 X10^3/uL; Monocyte% 6.7 % (0-10); NRBC Flagged by Analyzer 0 % (0-5); Neutrophil # 3.92 X10^3/uL (2.7-7.7); Neutrophil % 58.7 % (47-70); Platelet Count 244 K/mm3 (150-450); RBC Distribution Width CV 12.4 % (11.6-14.6); RBC Distribution Width SD 40.7 fl (35.1-43.9); White Blood Count 6.7 K/mm3 (4.4-11.0)
[2019-10-26 13:49] LABS: Anion Gap 5 (5-15); BUN 9 mg/dL (7-18); BUN/Creat Ratio 12.7 RATIO (10-20); Calcium,Total 8.8 mg/dL (8.5-10.1); Chloride 112 mmol/L (98-107); Creatinine, Serum 0.71 mg/dL (0.55-1.02); EST Glomerular Filtration Rate 96 mL/min (>60); Est Glom Filt Rate - Afr Amer 116 mL/min (>60); Estimated Creatinine Clearance 95.64 ml/min; Glucose 79 mg/dL (74-106); Potassium 3.7 mmol/L (3.5-5.1); Sodium Level 142 mmol/L (136-145)
[2019-10-26 14:09] VITALS: BP 109/73; PULSE 78; RESP 17; O2SAT 100
[2019-10-26 15:35] VITALS: BP 122/73
== END 2019-10-26 15:36 | disposition home or self-care (01) ==
LOC: ED 14:10
PROVIDERS: Emergency Provider Emergency Medicine; PCP Family Medicine
DX: R07.9 Chest pain, unspecified (principal); D68.59 Other primary thrombophilia; Z86.711 Personal history of pulmonary embolism; Z87.891 Personal history of nicotine dependence
CPT/HCPCS: 71275; 80048; 84484; 85025; 93005; 99284; J7030; Q9967; A4216

== ENCOUNTER → 2019-11-12 | Outpatient (CLI) | payer BC, SELFPAY ==
[2019-10-26 12:47] VITALS: BMI 26.9
[2019-11-12 13:25] LABS: Thyroid Stim Hormone (TSH) 1.23 uIU/mL (0.358-3.74)
== END | disposition home or self-care (01) ==
LOC: LABSPEC 12:14
PROVIDERS: PCP Family Medicine; Referring Provider Nurse Practitioner Adult Health; Visit Provider Nurse Practitioner Adult Health
DX: E03.8 Other specified hypothyroidism (principal)
CPT/HCPCS: 84443

== ENCOUNTER → 2020-04-14 | Outpatient (CLI) | payer BC, SELFPAY ==
[2020-04-14 11:28] LABS: ALB/GLOB Ratio 1.3 RATIO (0.9-2.4); AST(SGOT) 16 U/L (15-37); Alanine Aminotransfer ALT/SGPT 30 U/L (13-56); Alkaline Phosphatase 46 U/L (45-117); Anion Gap 4 (5-15); BUN 9 mg/dL (7-18); BUN/Creat Ratio 13.3 RATIO (10-20); Calcium,Total 9.1 mg/dL (8.5-10.1); Chloride 109 mmol/L (98-107); Creatinine, Serum 0.68 mg/dL (0.55-1.02); EST Glomerular Filtration Rate 100 mL/min (>60); Est Glom Filt Rate - Afr Amer 122 mL/min (>60); Globulin 3.1 g/dL (2.2-4.2); Glucose 65 mg/dL (74-106); Potassium 3.6 mmol/L (3.5-5.1); Protein, Total 7.1 g/dL (6.4-8.2); Sodium Level 139 mmol/L (136-145); Thyroid Stim Hormone (TSH) 1.06 uIU/mL (0.358-3.74)
== END | disposition home or self-care (01) ==
LOC: LABSPEC 10:45
PROVIDERS: PCP Family Medicine; Visit Provider Internal Medicine Endocrinology, Diabetes & Metabolism
DX: E03.8 Other specified hypothyroidism (principal); E55.9 Vitamin D deficiency, unspecified
CPT/HCPCS: 80053; 82306; 84443

== ENCOUNTER → 2020-05-09 | Outpatient (CLI) | payer BC, SELFPAY | END | disposition home or self-care (01) | LOC: LABSPEC 10:23 | PROVIDERS: PCP Family Medicine; Referring Provider Internal Medicine Endocrinology, Diabetes & Metabolism; Visit Provider Internal Medicine Endocrinology, Diabetes & Metabolism | DX: E24.8 Other Cushing's syndrome (principal) | CPT/HCPCS: 82533 ==

== ENCOUNTER → 2020-05-16 | Outpatient (CLI) | payer BC, SELFPAY ==
[2020-05-16 10:32] LABS: ALB/GLOB Ratio 1.4 RATIO (0.9-2.4); AST(SGOT) 13 U/L (15-37); Alanine Aminotransfer ALT/SGPT 25 U/L (13-56); Alkaline Phosphatase 42 U/L (45-117); Anion Gap 3 (5-15); BUN 10 mg/dL (7-18); BUN/Creat Ratio 15.8 RATIO (10-20); Calcium,Total 8.9 mg/dL (8.5-10.1); Chloride 109 mmol/L (98-107); Creatinine, Serum 0.63 mg/dL (0.55-1.02); EST Glomerular Filtration Rate 108 mL/min (>60); Est Glom Filt Rate - Afr Amer 131 mL/min (>60); Globulin 2.9 g/dL (2.2-4.2); Glucose 84 mg/dL (74-106); Potassium 4.2 mmol/L (3.5-5.1); Protein, Total 6.9 g/dL (6.4-8.2); Sodium Level 139 mmol/L (136-145)
[2020-05-16 10:33] LABS: Insulin 13.5 mU/L (2.6-37.6)
== END | disposition home or self-care (01) ==
LOC: LABSPEC 09:57
PROVIDERS: PCP Family Medicine; Visit Provider Internal Medicine Endocrinology, Diabetes & Metabolism
DX: E03.8 Other specified hypothyroidism (principal); E24.8 Other Cushing's syndrome
CPT/HCPCS: 80053; 83525

== ENCOUNTER → 2020-08-09 09:43 | Outpatient (CLI) | payer OTHER, SELFPAY ==
[2020-08-09 11:17] LABS: ALB/GLOB Ratio 1.4 RATIO (0.9-2.4); AST(SGOT) 16 U/L (15-37); Alanine Aminotransfer ALT/SGPT 31 U/L (13-56); Albumin, Serum 4.2 g/dL (3.2-5.0); Alkaline Phosphatase 38 U/L (45-117); Anion Gap 5 (5-15); BUN 12 mg/dL (7-18); BUN/Creat Ratio 16.9 RATIO (10-20); Calcium,Total 9.1 mg/dL (8.5-10.1); Chloride 108 mmol/L (98-107); Creatinine, Serum 0.71 mg/dL (0.55-1.02); EST Glomerular Filtration Rate 95 mL/min (>60); Est Glom Filt Rate - Afr Amer 115 mL/min (>60); Globulin 3.1 g/dL (2.2-4.2); Glucose 86 mg/dL (74-106); Potassium 3.9 mmol/L (3.5-5.1); Protein, Total 7.3 g/dL (6.4-8.2); Sodium Level 140 mmol/L (136-145); Thyroid Stim Hormone (TSH) 5.81 uIU/mL (0.358-3.74)
== END ==
PROVIDERS: PCP Family Medicine; Referring Provider Internal Medicine Endocrinology, Diabetes & Metabolism; Visit Provider Internal Medicine Endocrinology, Diabetes & Metabolism
DX: E03.8 Other specified hypothyroidism (principal)
CPT/HCPCS: 36415; 80053; 84443

== ENCOUNTER → 2020-09-08 | Outpatient (CLI) | payer OTHER, SELFPAY ==
[2020-09-08 15:08] LABS: Thyroid Stim Hormone (TSH) 0.33 uIU/mL (0.358-3.74)
== END | disposition home or self-care (01) ==
LOC: LABSPEC 12:14
PROVIDERS: PCP Family Medicine; Referring Provider Nurse Practitioner Adult Health; Visit Provider Nurse Practitioner Adult Health
DX: E03.8 Other specified hypothyroidism (principal)
CPT/HCPCS: 84443

== ENCOUNTER → 2020-10-26 10:44 | Outpatient (CLI) | payer OTHER, SELFPAY ==
[2020-10-26 11:52] LABS: Thyroid Stim Hormone (TSH) 0.39 uIU/mL (0.358-3.74)
== END ==
PROVIDERS: PCP Family Medicine; Visit Provider Nurse Practitioner Adult Health
DX: E03.8 Other specified hypothyroidism (principal)
CPT/HCPCS: 36415; 84443

== ENCOUNTER → 2020-12-26 11:42 | Outpatient (CLI) | payer OTHER, SELFPAY ==
[2020-12-26 13:55] LABS: ALB/GLOB Ratio 1.3 RATIO (0.9-2.4); AST(SGOT) 17 U/L (15-37); Alanine Aminotransfer ALT/SGPT 35 U/L (13-56); Albumin, Serum 3.9 g/dL (3.2-5.0); Alkaline Phosphatase 49 U/L (45-117); Anion Gap 7 (5-15); BUN 9 mg/dL (7-18); BUN/Creat Ratio 13.8 RATIO (10-20); Calcium,Total 8.6 mg/dL (8.5-10.1); Chloride 107 mmol/L (98-107); Creatinine, Serum 0.65 mg/dL (0.55-1.02); EST Glomerular Filtration Rate 105 mL/min (>60); Est Glom Filt Rate - Afr Amer 127 mL/min (>60); Glucose 91 mg/dL (74-106); Potassium 3.6 mmol/L (3.5-5.1); Protein, Total 6.9 g/dL (6.4-8.2); Sodium Level 139 mmol/L (136-145); Thyroid Stim Hormone (TSH) 0.43 uIU/mL (0.358-3.74)
[2020-12-26 15:44] LABS: Vitamin D,25 Hydroxy 55.7 ng/mL
== END ==
PROVIDERS: PCP Family Medicine; Referring Provider Internal Medicine Endocrinology, Diabetes & Metabolism; Visit Provider Internal Medicine Endocrinology, Diabetes & Metabolism
DX: E03.8 Other specified hypothyroidism (principal); E55.9 Vitamin D deficiency, unspecified
CPT/HCPCS: 36415; 80053; 82306; 84443

== ENCOUNTER → 2021-03-30 | Outpatient (CLI) | payer OTHER, SELFPAY | END | disposition home or self-care (01) | PROVIDERS: PCP Family Medicine; Visit Provider Physician Assistant | DX: Z20.822 Contact with and (suspected) exposure to COVID-19 (principal) | CPT/HCPCS: 87635; U0005; U0003 ==

== ENCOUNTER → 2021-04-20 | Outpatient (CLI) | payer OTHER, SELFPAY ==
[2021-04-20 13:11] LABS: Thyroid Stim Hormone (TSH) 0.21 uIU/mL (0.358-3.74)
== END | disposition home or self-care (01) ==
LOC: LABSPEC 11:53
PROVIDERS: PCP Family Medicine; Visit Provider Physician Assistant Medical
DX: E03.8 Other specified hypothyroidism (principal)
CPT/HCPCS: 84443

== ENCOUNTER → 2021-06-01 11:14 | Outpatient (CLI) | payer OTHER, SELFPAY | PROVIDERS: PCP Family Medicine; Visit Provider Physician Assistant | DX: Z11.52 Encounter for screening for COVID-19 (principal) | CPT/HCPCS: 87635; U0005; U0003 ==

== ENCOUNTER 2021-09-25 11:56 | Outpatient (CLI) | payer BC, SELFPAY ==
[2021-09-25 12:38] LABS: Vitamin D,25 Hydroxy 60.6 ng/mL
[2021-09-25 13:09] LABS: ALB/GLOB Ratio 1.6 RATIO (0.9-2.4); AST(SGOT) 12 U/L (15-37); Alanine Aminotransfer ALT/SGPT 21 U/L (13-56); Albumin, Serum 3.9 g/dL (3.2-5.0); Alkaline Phosphatase 41 U/L (45-117); Anion Gap 4 (5-15); BUN 7 mg/dL (7-18); BUN/Creat Ratio 12.5 RATIO (10-20); Calcium,Total 8.5 mg/dL (8.5-10.1); Chloride 109 mmol/L (98-107); Creatinine, Serum 0.56 mg/dL (0.55-1.02); EST Glomerular Filtration Rate 124 mL/min (>60); Est Glom Filt Rate - Afr Amer 150 mL/min (>60); Globulin 2.4 g/dL (2.2-4.2); Glucose 85 mg/dL (74-106); Potassium 3.9 mmol/L (3.5-5.1); Protein, Total 6.3 g/dL (6.4-8.2); Sodium Level 138 mmol/L (136-145); Thyroid Stim Hormone (TSH) 0.16 uIU/mL (0.358-3.74)
== END 2021-09-25 23:59 | disposition home or self-care (01) ==
LOC: LABSPEC 11:58
PROVIDERS: PCP Family Medicine; Visit Provider Internal Medicine Endocrinology, Diabetes & Metabolism
DX: E03.8 Other specified hypothyroidism (principal); E55.9 Vitamin D deficiency, unspecified
CPT/HCPCS: 80053; 82306; 84443

== ENCOUNTER → 2022-01-16 | Outpatient (CLI) | payer BC, SELFPAY ==
--- NOTE | 2022-01-16 09:20 | US_ITS ---
STUDY: ULTRASOUND BREAST - RIGHT REASON FOR EXAM: Female, 46 years old. Evaluation of the liver and tender area in right breast. Patient on antibiotics. TECHNIQUE: Axial and longitudinal images of the RIGHT breast were performed with a high resolution ultrasound transducer. # OF IMAGES: 15 COMPARISON: Bilateral diagnostic mammography performed today. FINDINGS: RIGHT Breast: Superficial subcutaneous circumscribed hypoechoic epidermal area measuring 12 mm x 14 mm x 3 mm. Finding is compatible with a superficial localized infection. Patient should continue taking antibiotics. If this area gets more painful or larger, she should return for a repeat ultrasound. Otherwise, she should return for her annual screening mammogram in September 2022. US/Breast Limited Unilateral IMPRESSION: Ultrasound findings compatible with superficial epidermal infection. No abscess or suspicious lesions. Follow-up clinically. Follow-up screening mammogram recommended in September 2022. ASSESSMENT CATEGORY: BIRADS Category 2: Benign. A letter regarding these results will be sent to the patient by the facility within 30 days. Electronically Signed: Ford Ortiz MD at 10:53 EDT ,
--- NOTE | 2022-01-16 09:20 | BI_ITS ---
MAMMOGRAPHY - BILATERAL DIAGNOSTIC REASON FOR EXAM: Female, 46 years old. Right rest soreness and redness. Patient on antibiotics. PERTINENT HISTORY: Grandmother with breast cancer at age 72 and paternal aunt with breast cancer at age 55. TECHNIQUE: Digital examination. Mediolateral oblique (MLO) and craniocaudad (CC) views of both breasts were obtained. 3-D tomosynthesis images also performed. CAD: CAD was performed on this study. COMPARISON: 10/02/2018. FINDINGS: Breast Composition: There are scattered areas of fibroglandular density. There are no dominant masses or suspicious calcifications. Ultrasound in the area of clinical concern showed superficial epidermal lesion compatible with a superficial infection (see detailed ultrasound report). BI/DIAG MAMM W/CAD, BILAT IMPRESSION: Findings compatible with superficial infection. Patient should continue antibiotics. If the area of clinical concern progresses, she should return for a repeat diagnostic mammogram and breast ultrasound. Otherwise, she should return for her annual screening mammogram in September 2022. ASSESSMENT CATEGORY: BIRADS Category 2: Benign. A letter regarding these results will be sent to the patient by the facility within 30 days. FOLLOW UP RECOMMENDATION: Yearly follow up mammogram recommended. (A) Approximately 10% of breast cancers are not detected by mammography. A normal mammogram should not delay biopsy of a clinically suspicious abnormality. Electronically Signed: Ford Ortiz MD at 10:56 EDT ,
== END | disposition home or self-care (01) ==
PROVIDERS: PCP Family Medicine; Visit Provider Family Medicine
DX: N64.4 Mastodynia (principal); N64.59 Other signs and symptoms in breast
CPT/HCPCS: 76642; 77062; 77066; G0279

== ENCOUNTER → 2022-02-15 | Outpatient (CLI) | payer BC, SELFPAY ==
--- NOTE | 2022-02-15 | CYST_PTH ---
PATIENT: AMNA ABEL LOC: [facility] U#:[id number] AGE/SX: 46/F ROOM: RE02/15/[address]: Dr. Kelley Tomas MD : 1975 BED: DIS: 02/15/2022 SPEC #: [id number] RECD: 02/15/22 11:19 STATUS: PATRICK REMorgan #: [id number] LOUISE: 02/15/22 00:[address]: Kelley Tomas DEPT: SURGICAL PATHOLOGY RECD BY: Marlo Ross ENTERED: 02/15/22 11:19 SP TYPE: Cyst OTHR DR: Dr. Kamar Sanchez, DO Tissues: CYST Procedures: Surgery Specimen Level IV HEADER OPERATION: Excision of right breast cyst PRE-OP DIAGNOSIS: Right breast cyst TISSUE SUBMITTED: Right breast cyst MICROSCOPIC DIAGNOSIS Right breast cyst, excision: Benign fibrous walled cyst with minimal chronic inflammation. No evidence of malignancy. AM:leonardo 02/20/2022 MICROSCOPIC DESCRIPTION Slides are reviewed. GROSS DESCRIPTION Received in fixative is one container labeled with the patient's name and designated right breast cyst. The specimen consists of a piece of polanco-yellow fibroadipose tissue measuring 1 x 0.5 x 0.5 cm. The specimen is inked, bisected and submitted entirely in one cassette. / SJ:rg 02/15/2022 TC:5 CPT: 86478
== END | disposition home or self-care (01) ==
LOC: LABSPEC 09:15
PROVIDERS: PCP Family Medicine; Visit Provider Surgery
DX: N60.01 Solitary cyst of right breast (principal)
CPT/HCPCS: 88304; 88305

== ENCOUNTER → 2022-03-22 | Outpatient (CLI) | payer BC, SELFPAY ==
[2022-03-22 17:57] LABS: ALB/GLOB Ratio 1.3 RATIO (0.9-2.4); AST(SGOT) 15 U/L (15-37); Alanine Aminotransfer ALT/SGPT 22 U/L (13-56); Albumin, Serum 3.8 g/dL (3.2-5.0); Alkaline Phosphatase 47 U/L (45-117); Anion Gap 6 (5-15); BUN 12 mg/dL (7-18); Calcium,Total 8.8 mg/dL (8.5-10.1); Chloride 110 mmol/L (98-107); Creatinine, Serum 0.71 mg/dL (0.55-1.02); EST Glomerular Filtration Rate 95 mL/min (>60); Est Glom Filt Rate - Afr Amer 115 mL/min (>60); Glucose 105 mg/dL (74-106); Potassium 3.8 mmol/L (3.5-5.1); Protein, Total 6.8 g/dL (6.4-8.2); Sodium Level 141 mmol/L (136-145); Thyroid Stim Hormone (TSH) 3.29 uIU/mL (0.358-3.74)
== END | disposition home or self-care (01) ==
LOC: LAB 16:19
PROVIDERS: PCP Family Medicine; Referring Provider Internal Medicine Endocrinology, Diabetes & Metabolism; Visit Provider Internal Medicine Endocrinology, Diabetes & Metabolism
DX: E03.8 Other specified hypothyroidism (principal); E04.2 Nontoxic multinodular goiter
CPT/HCPCS: 36415; 80053; 84443

== ENCOUNTER 2022-05-30 09:23 | Day surgery (SDC) | payer BC, SELFPAY ==
[2022-05-30 09:51] VITALS: BP 118/75; PULSE 71; RESP 16; TEMP 36.6; O2SAT 100; BMI 32.9
[2022-05-30] MEDS: Lactated Ringers 1,000 ML 15 ML IV (09:56)
--- NOTE | 2022-05-30 10:13 | HP.PCM_ITS ---
HPI - General HPI Narrative CHANELLE WOO, is a 47 F who presents for screening colonoscopy. Patient never had a previous colonoscopy. Patient denies any family history of colon cancer. Patient denies any chronic abdominal pain/nausea/vomiting/reflux. Patient has bowel movements every other, denies any blood. [facility] Medical History (Updated 05/28/22 @ 16:11 by Kimmie Landeros) Arthritis DVT (deep venous thrombosis) (~2016) Easy bruising Former smoker High cholesterol History of renal calculi History of TMJ syndrome Hypothyroidism Infected sebaceous cyst of skin Leg cramps Migraine Obesity Osteoarthritis Pulmonary embolism (~2015) Wears contact lenses Home Medications thyroid (pork) 90 mg tablet ([place] Thyroid) 90 mg PO DAILY 03/05/18 [History Last Taken 10/26/19] ergocalciferol (vitamin D2) 1,250 mcg (50,000 unit) capsule 1,250 mcg PO JALLOH 10/26/19 [History Last Taken 10/25/19] magnesium oxide 500 mg capsule 500 mg PO DAILY 10/26/19 [History Last Taken 10/25/19] multivitamin 1 ea PO DAILY 10/26/19 [History Last Taken 10/25/19] Allergy/AdvReac Type Severity Reaction Status Date / Time Sulfa (Sulfonamide Allergy Hives Verified 05/30/22 09:48 Antibiotics) morphine AdvReac Other Verified 05/30/22 09:48 Family History Father Protein C deficiency Surgical History (Updated 05/28/22 @ 16:11 by Kimmie Landeros) H/O tubal ligation History of bunionectomy History of endometrial ablation History of mandibular surgery History of removal of cyst Social History Smoking Status: Former smoker Past Medical/Surgical History Planned Operation Planned Operative Procedure/s: CSCOPE S.O.S: No Previous Hospitalizations/Surgeries HX Hospitalizations: No HX of Surgeries: RECONSTRUCTION JAW SURGERY 4 TMJ SURGERY TUBAL LIGATION HYSTEROSCOPY D&C HYDROABLATION Any Problems With Anesthesia: No You/Your Family Experience Fever (Hyperthermia) With Anes: No Cholinesterase deficiency: No Cardiovascular Hx Chest Pain within Last 2 months: No Hx of Irregular Heartbeat and/or Afib: No Hx Heart Attack: No Hx Congestive Heart Failure: No Hx Rheumatic Fever: No Hx Hypertension: No Hx Internal Defibrillator: No Hx Pacemaker: No Hx Cardiac Catheterization: No Hx Cardiac Surgery/Stents/Etc.: No Hx Stress Test: Yes (2011 AND ECHO 2011) Hx Pain in Legs when Walking/Leg Cramps: No Respiratory Chronic Cough: No HX of Shortness of Breath: No Hoarseness: No Hx Chronic Obstructive Pulmonary Disease (COPD): No Hx Asthma: No Hx Emphysema: No Hx Sleep Apnea: No CPAP: No BIPAP: No Hx Respiratory Tract Infection/Cold (presently): No Do You Snore Loudly (louder than talking or can be heard): No Do You Often Feel Tired/ Fatigued/ Sleepy Dring Daytime?: No Has Anyone Observed You Stop Breathing During Sleep?: No Result (for STOP score): Negative Hx Smoking: Yes (5 CIGARETTES DAILY) Smoking Status: Former smoker Gastrointestinal Hx Gastroesophageal Reflux: No Hx Gastrointestinal Disorders: No Hx Gastrointestinal Bleed: No Hx Ulcer: No Hx Hiatal Hernia: No Difficulty Chewing/Swallowing: No Special diet followed at home: No Hx Unplanned Weight Loss of 20#: No HX Unplanned Weight Gain of 20#: No Neurological Hx Seizures: No HX Syncope/Blackout Spells/Unconsciousness: No Hx Transient Ischemic Attacks (TIA): No Hx Multiple Sclerosis: No Hx Parkinson's Disease: No Hx Head/Neck Injury: No Hx Headaches: No Hx Back Injury/Pain: No Recent Onset of Speech Difficulty: No Restless Legs: Yes Does patient have nerve stimulator: No Blood Disorder Hx Leukemia: No Bleeding Tendencies: No Hx Deep Vein Thrombosis: No Hx High Cholesterol: No Blood Transmitted Disease: No Hx Hepatitis: No Hx Cirrhosis: No Hx Anemia: No Hx Blood Disorders: No Reproduction : No Is Patient Lactating: No Hx Tubal Ligation: Yes Genitourinary Hx Renal Disease: No Musculoskeletal Hx Arthritis: No Hx Rheumatoid Arthritis: No Hx Gout: No Recent Onset of an Orthopedic Problem: Yes (RIGHT FOOT) Endocrine Hx Diabetes: No Thyroid Disease: Yes (ON MEDS) Hx Steroid Therapy: No Psycho/Social Hx Substance Use: No Hx Alcohol Use: No Hx Anxiety: No Hx Depression: No Mental Illness: No Hx Dementia: No Miscellaneous Hx Cancer: No Recent Exposure to Contagious Disease: No Hx of C-Diff: No Any Loose Teeth: No Allergies Sulfa (Sulfonamide Antibiotics) Allergy (Verified 05/30/22 09:48) Hives morphine Adverse Reaction (Verified 05/30/22 09:48) Other Discharge Is Pt Admitted From a Senior Care, or a Nursing Home: No After D/C, Where Do you Plan to Go: Return Home Vital Signs Vital Signs Vital Signs: 05/30/22 09:51 12 09:51 Temperature 97.8 F Temperature Source Temporal Pulse Rate 71 Respiratory Rate 16 Respiratory Pattern Normal Blood Pressure 118/75 Blood Pressure Mean 89 Blood Pressure Source Monitor Blood Pressure Position Semi-Fowlers Blood Pressure Location Right Arm Pulse Ox 100 Oxygen Delivery Method Room Air Weight Weight: 174 lb 2.643 oz Body Mass Index (BMI) 32.9 Physical Exam Const alert, oriented x3 and no apparent distress HEENT normocephalic and head/scalp atraumatic Resp normal respiratory effort Cardio regular rate GI soft to palpation and non-tender; Negative for non-distended Palpation: Negative for guarding Extremity no clubbing, cyanosis or edema Neuro CN's II-XII intact bilaterally Psych mental status grossly normal Assessment & Plan Assessment/Plan (1) Encounter for screening for malignant neoplasm of colon: Surgery Risks - Colonoscopy Risks Include but are not Limited To: Risks include but are not limited to: Bleeding, perforation requiring further surgery, inability to complete colonoscopy requiring barium enema.
--- NOTE | 2022-05-30 10:45 | COLBX_PTH ---
PATIENT: AMNA ABEL LOC: EN U#:[id number] AGE/SX: 47/F ROOM: RE05/30/[address]: Dr. Kelley Tomas MD : 1975 BED: DIS: 05/30/2022 SPEC #: [id number] RECD: 05/30/22 12:49 STATUS: PATRICK REQ #: [id number] LOUISE: 05/30/22 10:[address]: Kelley Tomas DEPT: SURGICAL PATHOLOGY RECD BY: Norma Parker ENTERED: 05/31/22 08:53 SP TYPE: COLON BX OTHR DR: Dr. Kamar Sanchez, Tissues: COLON BIOPSY Procedures: Surgery Specimen Level IV HEADER OPERATION: Colonoscopy with polypectomy (MAC) PRE-OP DIAGNOSIS: Screening TISSUE SUBMITTED: Descending colon polyp biopsy MICROSCOPIC DIAGNOSIS Descending colon polyp, biopsy: Tubular adenoma. AM:leonardo 06/01/2022 MICROSCOPIC DESCRIPTION Slides are reviewed. GROSS DESCRIPTION Received in fixative is one container labeled with the patient's name and designated descending colon polyp biopsy. The specimen consists of one irregular fragment of light polanco soft tissue that measures 0.2 x 0.2 x 0.1 cm. The specimen is totally submitted in one cassette. / SJ:leonardo 05/31/2022 TC:5 CPT: 11736
[2022-05-30 11:32] VITALS: BP 104/70; BP 118/75; PULSE 75; RESP 16; TEMP 36.6; O2SAT 100
--- NOTE | 2022-05-30 11:34 | OP.COLON_ITS ---
Patient Name: Apoorva Lancaster Procedure Date: 05/30/2022 10:54 AM Date of : 1975 Age: 47 Procedure: Colonoscopy Indications: Screening for colorectal malignant neoplasm Providers: Kelley Tomas MD Referring MD: Kamar Sanchez Medicines: Monitored Anesthesia Care Patient Profile: This is a 47 year old female. Last Colonoscopy: none. The patient's first colonoscopy is today. Complications: No immediate complications. Procedure: Pre-Anesthesia Assessment: - Prior to the procedure, a History and Physical was performed, and patient medications and allergies were reviewed. The patient's tolerance of previous anesthesia was also reviewed. The risks and benefits of the procedure and the sedation options and risks were discussed with the patient. All questions were answered, and informed consent was obtained. Prior Anticoagulants: The patient has taken no previous anticoagulant or antiplatelet agents. ASA Grade Assessment: Per anesthesia. After reviewing the risks and benefits, the patient was deemed in satisfactory condition to undergo the procedure. After I obtained informed consent, the scope was passed under direct vision. Throughout the procedure, the patient's blood pressure, pulse, and oxygen saturations were monitored continuously. The pediatric colonoscope was introduced through the anus and advanced to the cecum, identified by the appendiceal orifice, ileocecal valve and palpation. The colonoscopy was performed without difficulty. The patient tolerated the procedure well. The quality of the bowel preparation was good. Scope In: 11:07:41 AM Scope Withdrawal Time 0 hours 7 minutes 37 seconds Scope Out: 11:23:56 AM Total Procedure Duration Time 0 hours 16 minutes 15 seconds Findings: The perianal and digital rectal examinations were normal. A less than 5 mm polyp was found in the descending colon. The polyp was sessile. The polyp was removed with a cold biopsy forceps. Resection and retrieval were complete. Multiple small-mouthed diverticula were found in the entire colon. The exam was otherwise without abnormality on direct and retroflexion views. Impression: - One less than 5 mm polyp in the descending colon, removed with a cold biopsy forceps. Resected and retrieved. - Diverticulosis in the entire examined colon. - The examination was otherwise normal on direct and retroflexion views. Recommendation: - Discharge patient to home. - High fiber diet. - Continue present medications. - Await pathology results. - Repeat colonoscopy in 5-10 years for surveillance based on pathology results. Procedure Code(s): --- Professional --- 43895, PT, Colonoscopy, flexible; with biopsy, single or multiple Diagnosis Code(s): --- Professional --- Z12.11, Encounter for screening for malignant neoplasm of colon D12.4, Benign neoplasm of descending colon K57.30, Diverticulosis of large intestine without perforation or abscess without bleeding CPT copyright 2017 [employer]. All rights reserved. The codes documented in this report are preliminary and upon solar energy technician review may be revised to meet current compliance requirements. MD Kelley Espana MD 05/30/2022 11:33:38 AM This report has been signed electronically. Number of Addenda: 0 Note Initiated On: 05/30/2022 10:54 AM
--- NOTE | 2022-05-30 11:34 | OP.CCLET_ITS ---
05/30/2022 Kamar Sanchez [address] [place] [address] Re : Colonoscopy procedure for [facility] Dear Dr. Sanchez This procedure was performed on Monday, May 30, 2022. My impressions and recommendations are as follows: Impressions : - One less than 5 mm polyp in the descending colon, removed with a cold biopsy forceps. Resected and retrieved. - Diverticulosis in the entire examined colon. - The examination was otherwise normal on direct and retroflexion views. Recommendations : - Discharge patient to home. - High fiber diet. - Continue present medications. - Await pathology results. - Repeat colonoscopy in 5-10 years for surveillance based on pathology results. My findings are described in the full procedure note, which is enclosed. If I can be of further assistance, please feel free to contact me at Doctor phone number(s): , Work: . Sincerely, MD Kelley Espana MD 05/30/2022 11:33:38 AM This report has been signed electronically.
[2022-05-30 11:35] VITALS: BP 109/63; BP 118/75; PULSE 68; RESP 16; O2SAT 100
[2022-05-30 11:40] VITALS: BP 116/70; BP 118/75; PULSE 63; RESP 16; O2SAT 100
[2022-05-30 11:45] VITALS: BP 116/76; BP 118/75; PULSE 62; RESP 16; TEMP 36.3; O2SAT 100
[2022-05-30 12:20] VITALS: BP 116/78; BP 118/75; PULSE 68; RESP 18; RESP 98; TEMP 36.1
== END 2022-05-30 12:33 | disposition home or self-care (01) ==
LOC: EN 09:23 → AC 09:25
PROVIDERS: PCP Family Medicine; Referring Provider Family Medicine; Visit Provider Surgery
PROC: 0DJD8ZZ Inspection of Lower Intestinal Tract, Via Natural or Artificial Opening Endoscopic (ICD-10-PCS; CPT 45378; principal; 2022-05-30 10:40)
DX: Z12.11 Encounter for screening for malignant neoplasm of colon (principal); K57.30 Diverticulosis of large intestine without perforation or abscess without bleeding; D12.4 Benign neoplasm of descending colon; E03.9 Hypothyroidism, unspecified; Z86.718 Personal history of other venous thrombosis and embolism; Z79.899 Other long term (current) drug therapy; Z87.891 Personal history of nicotine dependence
CPT/HCPCS: 45380; 88305; J7120; J2405

== ENCOUNTER → 2022-10-02 | Outpatient (CLI) | payer BC, SELFPAY ==
[2022-10-02 10:49] LABS: Vitamin D,25 Hydroxy 63.2 ng/mL
[2022-10-02 11:16] LABS: ALB/GLOB Ratio 1.5 RATIO (0.9-2.4); AST(SGOT) 20 U/L (15-37); Alanine Aminotransfer ALT/SGPT 30 U/L (13-56); Alkaline Phosphatase 45 U/L (45-117); Anion Gap 5 (5-15); BUN 9 mg/dL (7-18); BUN/Creat Ratio 16.1 RATIO (10-20); Calcium,Total 8.6 mg/dL (8.5-10.1); Chloride 108 mmol/L (98-107); Creatinine, Serum 0.56 mg/dL (0.55-1.02); EST Glomerular Filtration Rate 124 mL/min (>60); Est Glom Filt Rate - Afr Amer 150 mL/min (>60); Globulin 2.7 g/dL (2.2-4.2); Glucose 89 mg/dL (74-106); Potassium 3.8 mmol/L (3.5-5.1); Protein, Total 6.7 g/dL (6.4-8.2); Sodium Level 137 mmol/L (136-145); Thyroid Stim Hormone (TSH) 2.21 uIU/mL (0.358-3.74)
== END | disposition home or self-care (01) ==
LOC: LABSPEC 10:14
PROVIDERS: PCP Family Medicine; Referring Provider Internal Medicine Endocrinology, Diabetes & Metabolism; Visit Provider Internal Medicine Endocrinology, Diabetes & Metabolism
DX: E03.8 Other specified hypothyroidism (principal); E55.9 Vitamin D deficiency, unspecified
CPT/HCPCS: 80053; 82306; 84443

== ENCOUNTER → 2022-10-20 | Outpatient (CLI) | payer BC, SELFPAY | END | disposition home or self-care (01) | LOC: LAB 07:37 | PROVIDERS: PCP Family Medicine; Referring Provider Internal Medicine Endocrinology, Diabetes & Metabolism; Visit Provider Internal Medicine Endocrinology, Diabetes & Metabolism | DX: E03.8 Other specified hypothyroidism (principal); E24.9 Cushing's syndrome, unspecified | CPT/HCPCS: 36415; 82533 ==

== ENCOUNTER → 2022-11-17 | Outpatient (CLI) | payer BC, SELFPAY ==
[2022-11-17 09:12] LABS: Glucose 88 mg/dL (74-106)
[2022-11-19 08:21] LABS: Insulin 11.4 mU/L (2.6-37.6)
== END | disposition home or self-care (01) ==
LOC: LAB 07:13
PROVIDERS: PCP Family Medicine; Referring Provider Internal Medicine Endocrinology, Diabetes & Metabolism; Visit Provider Internal Medicine Endocrinology, Diabetes & Metabolism
DX: E03.8 Other specified hypothyroidism (principal); E88.81 Metabolic syndrome and other insulin resistance
CPT/HCPCS: 36415; 82947; 83525

== ENCOUNTER → 2022-12-01 | Outpatient (CLI) | payer BC, SELFPAY | END | disposition home or self-care (01) | LOC: LAB 07:05 | PROVIDERS: PCP Family Medicine; Referring Provider Nurse Practitioner Family; Visit Provider Nurse Practitioner Family | DX: R79.89 Other specified abnormal findings of blood chemistry (principal) | CPT/HCPCS: 36415; 82533 ==

== ENCOUNTER → 2023-03-22 | Outpatient (CLI) | payer BC, SELFPAY ==
--- NOTE | 2023-03-22 09:03 | BI_ITS ---
MAMMOGRAPHY - BILATERAL SCREENING REASON FOR EXAM: Female, 47 years old. Routine annual screening examination. PERTINENT HISTORY: Grandmother with breast cancer. Aunt with breast cancer. TECHNIQUE: Digital bilateral breast gilbert (3D mammographic acquisition) in the CC and MLO projections. 2-D mediolateral oblique (MLO) and craniocaudad (CC) views of both breasts were obtained. CAD: Full Field Digital Mammography with Computer Added Detection was performed. COMPARISON: Comparison is made with prior study dated October 02, 2018 and January 16, 2022. FINDINGS: Breast Composition: The breasts are heterogeneously dense, which may obscure small masses. There are no dominant masses or suspicious calcifications. No other significant abnormalities are identified. There has been no significant change since the prior study. BI/SCRN MAMM (CAD)W/GILBERT BILAT IMPRESSION: Stable bilateral screening mammogram. Yearly follow-up mammogram recommended. (A) ASSESSMENT CATEGORY: BIRADS Category 1: Negative. A letter regarding these results will be sent to the patient by the facility within 30 days. Approximately 10% of breast cancers are not detected by mammography. A normal mammogram should not delay biopsy of a clinically suspicious abnormality. [id number] Electronically Signed: Parth Bowlnig MD at 10:24 EDT ,
== END | disposition home or self-care (01) ==
LOC: OPBI 09:02
PROVIDERS: PCP Family Medicine; Referring Provider Family Medicine; Visit Provider Family Medicine
DX: Z12.31 Encounter for screening mammogram for malignant neoplasm of breast (principal)
CPT/HCPCS: 77063; 77067

== ENCOUNTER → 2023-05-01 | Outpatient (CLI) | payer BC, SELFPAY ==
--- NOTE | 2023-05-01 13:47 | US_ITS ---
STUDY: THYROID ULTRASOUND REASON FOR EXAM: Female, 48 years old. assess 2 thyroid nodules previously 2 cm TECHNIQUE: Ultrasound evaluation of the thyroid was performed with real-time and static moreland-scale imaging. COMPARISON: None. FINDINGS: RIGHT LOBE: The right lobe of the thyroid gland measures 3.2 x 1.7 x 1.6 cm. There is a heterogeneous echotexture. Nodule 1:6 x 7 x 6 mm solid hyperechoic wider than tall ill-defined margin nodule with no echogenic foci (TR 3) in the mid right lobe consistent with an adenoma. Nodule 2:7 x 7 x 3 mm solid hypoechoic wider than tall ill-defined margin nodule with no echogenic foci (TR 4) in the anterior right lobe consistent with an adenoma. LEFT LOBE: The left lobe of the thyroid gland measures 3.7 x 1.3 x 2.8 cm. There is a heterogeneous echotexture. There are no demonstrated solid, cystic or complex lesions. ISTHMUS: The isthmus measures 3 mm thick. . The regional lymph nodes are normal. US/Thyroid IMPRESSION: Thyroiditis with small adenomas. Electronically Signed: Bhupinder Brock MD at 22:50 EST ,
== END | disposition home or self-care (01) ==
PROVIDERS: PCP Family Medicine; Referring Provider Internal Medicine Endocrinology, Diabetes & Metabolism; Visit Provider Internal Medicine Endocrinology, Diabetes & Metabolism
DX: E04.1 Nontoxic single thyroid nodule (principal)
CPT/HCPCS: 76536

== ENCOUNTER → 2024-03-23 | Outpatient (CLI) | payer BC, SELFPAY ==
[2024-03-23 10:07] LABS: Vitamin B12 311 pg/mL (211-911); Vitamin D,25 Hydroxy 73.6 ng/mL
[2024-03-23 11:08] LABS: T4 Free Direct 1.07 ng/dL (0.76-1.46)
== END | disposition home or self-care (01) ==
PROVIDERS: PCP Family Medicine; Referring Provider Internal Medicine Endocrinology, Diabetes & Metabolism; Visit Provider Internal Medicine Endocrinology, Diabetes & Metabolism
DX: E03.9 Hypothyroidism, unspecified (principal); E55.9 Vitamin D deficiency, unspecified
CPT/HCPCS: 36415; 82306; 82607; 84439; 84443

== ENCOUNTER → 2024-04-09 | Outpatient (CLI) | payer BC, SELFPAY ==
--- NOTE | 2024-04-09 07:27 | BI_ITS ---
MAMMOGRAPHY - BILATERAL SCREENING REASON FOR EXAM: Female, 49 years old. Routine annual screening examination. PERTINENT HISTORY: Grandmother with breast cancer. Aunt with breast cancer. TECHNIQUE: Digital bilateral breast gilbert (3D mammographic acquisition) in the CC and MLO projections. 2-D mediolateral oblique (MLO) and craniocaudad (CC) views of both breasts were obtained. CAD: Full Field Digital Mammography with Computer Added Detection was performed. COMPARISON: Comparison is made with prior study dated March 22, 2023 and January 16, 2022. FINDINGS: Breast Composition: The breasts are heterogeneously dense, which may obscure small masses. There are no dominant masses or suspicious calcifications. No other significant abnormalities are identified. There has been no significant change since the prior study. BI/SCRN MAMM (CAD)W/GILBERT BILAT IMPRESSION: Stable bilateral screening mammogram. Yearly follow-up mammogram recommended. (A) ASSESSMENT CATEGORY: BIRADS Category 1: Negative. A letter regarding these results will be sent to the patient by the facility within 30 days. Approximately 10% of breast cancers are not detected by mammography. A normal mammogram should not delay biopsy of a clinically suspicious abnormality. [id number] Electronically Signed: Parth Bowling MD at 8:44 EDT ,
--- OUTSIDE RECORDS SUMMARY | 2024-04-09 07:37 | XMS RPT_ITS | CCD ---
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 Pt states she is having chest pain and shortness of breath. Pt states she thinks she has blood clots in my lungs again . Offered to make pt apt to follow up with provider after ERbut pt declined. Pt is going to ER Andressa Cronin RN Allergies As of Date: 10/26/2019 Noted Allergy Reaction MORPHINE 09/08/2008 SULFA (SULFONAMIDE ANTIBIOTICS) 08/22/2007 Date Reviewed: 10/09/2017 Reviewed by: Liban ([facility]) - Fully Assessed Reason for Visit: Patient Question [[id number]] Prescriptions as of 10/26/2019 Sig: DOXYCYCLINE MONOHYDRATE 100 M* Take 1 tablet by mouth twice * LEVOTHYROXINE 100 MCG TABLET Take 100 mcg by mouth daily b* Problem List As Of Date 10/26/2019 Noted Resolved Nipple discharge [N64.52] 08/24/2010 Encounter Status:Closed by ANDRESSA CRONIN RN on 10/26/19 [facility] Summary Purpose Family History No Family History Records Found Advance Directives No Advanced Directives Records Found Additional Source Comments INFORMATION SOURCE (unrecogn ized section and content) DATE CREATED AUTHOR 11/01/2019 [facility] FOR RECORDS PERTAINING TO PATIENTS WHO ARE OR HAVE BEEN ENROLLED IN A CHEMICAL DEPENDENCY/SUBSTANCEABUSE PROGRAM, SOME INFORMATION MAY BE OMITTED. This clinical summary was aggregated from multiple sources. Caution should be exercised in using it in the provision of clinical care. This summary normalizes information from multiple sources, and as a consequence, information in this document may materially change the coding, format and clinical context of patient data. In addition, data may be omitted in some cases. CLINICAL DECISIONS SHOULD BE BASED ON THE PRIMARY CLINICAL RECORDS. [facility] [employer] [facility]. provides no warranty or guarantee of the accuracy or completeness of information in this document.
--- NOTE | 2024-04-09 07:48 | US_ITS ---
INDICATION: RUQ PAIN EXAMINATION: Ultrasound US Abdomen Limited (quadrant) TECHNIQUE: Koehler scale and color doppler imaging was performed of the right upper quadrant. COMPARISON: FINDINGS: LIVER: There is coarse echotexture measuring 16.4 cm. There is a 10 x 7 mm left hepatic cyst. A 4 x 5 mm hyperechoic left hepatic nodule possibly a small hemangioma. There is no free fluid. GALLBLADDER AND BILIARY TREE: No shadowing gallstone, pericholecystic fluid or gallbladder wall thickening is demonstrated. Possible minimal sludge. The proximal common bile duct measures 3.8 mm, which is within normal limits for the patient''s age. Songraphic Burrows''s sign: Negative. PANCREAS: No focal abnormality is demonstrated in the pancreas. No pancreatic ductal dilatation. RIGHT KIDNEY: 11.8 x 5.6 x 4.9 cm the cortex is 12 mm. No hydronephrosis. No shadowing calculi. US/Abdomen Limited IMPRESSION: Coarse hepatic echotexture. Left hepatic cyst and probable hemangioma. Minimal gallbladder sludge. Electronically Signed: Connor Horton DO at 16:08 EDT ,
== END | disposition home or self-care (01) ==
LOC: OPBI 07:25
PROVIDERS: PCP Family Medicine; Referring Provider Nurse Practitioner Family; Visit Provider Nurse Practitioner Family
DX: Z12.31 Encounter for screening mammogram for malignant neoplasm of breast (principal); R10.11 Right upper quadrant pain; D18.03 Hemangioma of intra-abdominal structures
CPT/HCPCS: 76705; 77063; 77067

== ENCOUNTER → 2024-04-17 | Outpatient (CLI) | payer BC, SELFPAY ==
[2024-04-17 17:04] LABS: AST(SGOT) 13 U/L (15-37); Alanine Aminotransfer ALT/SGPT 22 U/L (13-56); Albumin, Serum 4.3 g/dL (3.2-5.0); Alkaline Phosphatase 49 U/L (45-117); Bilirubin, Direct 0.06 mg/dL (0.00-0.30); Globulin 3.1 g/dL (2.2-4.2); Protein, Total 7.4 g/dL (6.4-8.2)
== END | disposition home or self-care (01) ==
PROVIDERS: PCP Family Medicine; Referring Provider Surgery; Visit Provider Surgery
DX: K82.9 Disease of gallbladder, unspecified (principal)
CPT/HCPCS: 36415; 80076

== ENCOUNTER 2024-04-29 09:46 | Day surgery (SDC) | payer BC, SELFPAY ==
[2024-04-27 13:19] LABS: Hematocrit 40.5 % (37-47); Hemoglobin 13.9 g/dL (12.0-15.0); Mean Corp Hgb Conc 34.3 g/dL (32-36); Mean Corpuscular Hgb 30.1 pg (27.0-32.0); Mean Corpuscular Volume 87.7 fL (81-99); Mean Platelet Vol. 8.5 fl (6.2-12.0); Platelet Count 253 K/mm3 (150-450); RBC Distribution Width CV 12.5 % (11.6-14.6); RBC Distribution Width SD 39.8 fl (35.1-43.9); Red Blood Count 4.62 M/mm3 (4.2-5.4); White Blood Count 5.8 K/mm3 (4.4-11.0)
[2024-04-27 13:25] LABS: Prothrombin Time (Protime)PT. 13.3 SECONDS (11.7-14.9)
[2024-04-27 13:56] LABS: AST(SGOT) 14 U/L (15-37); Alanine Aminotransfer ALT/SGPT 25 U/L (13-56); Albumin, Serum 4.1 g/dL (3.2-5.0); Alkaline Phosphatase 41 U/L (45-117); Anion Gap 7 (5-15); BUN 18 mg/dL (7-18); BUN/Creat Ratio 26.4 RATIO (10-20); Bilirubin, Direct 0.12 mg/dL (0.00-0.30); Chloride 106 mmol/L (98-107); Creatinine, Serum 0.68 mg/dL (0.55-1.02); EST Glomerular Filtration Rate 98 mL/min (>60); Est Glom Filt Rate - Afr Amer 119 mL/min (>60); Globulin 3.2 g/dL (2.2-4.2); Glucose 90 mg/dL (74-106); Potassium 3.8 mmol/L (3.5-5.1); Protein, Total 7.3 g/dL (6.4-8.2); Sodium Level 139 mmol/L (136-145); T4 Free Direct 1.13 ng/dL (0.76-1.46)
[2024-04-29] VITALS (10 sets, daily range): BP systolic 105–130; BP diastolic 61–79; PULSE 51–75; RESP 16; TEMP 36.3–36.6; O2SAT 97–100; BMI 29.6
[2024-04-29] MEDS: Lactated Ringers 1,000 ML 15 ML IV (10:19)
[2024-04-29] MEDS: Cefazolin 2 GM in Syringe IV (12:05)
[2024-04-29] MEDS: Bupivacaine Mpf 0.5% 30 ML VIAL (13:00)
[2024-04-29] MEDS: oxyCODONE 5 MG Tablet PO (15:02)
[2024-04-29] MEDS: Acetaminophen 325 MG Tablet 650 MG PO (15:02)
== END 2024-04-29 16:05 | disposition home or self-care (01) ==
LOC: SDC 09:47 → AC 09:48
PROVIDERS: Anesthesiology; PCP Family Medicine; Referring Provider Surgery; Visit Provider Surgery
PROC: (CPT 47610; principal; 2024-04-29 11:10)
DX: K80.10 Calculus of gallbladder with chronic cholecystitis without obstruction (principal); E78.00 Pure hypercholesterolemia, unspecified; K83.8 Other specified diseases of biliary tract; Z87.891 Personal history of nicotine dependence; K76.89 Other specified diseases of liver; K21.9 Gastro-esophageal reflux disease without esophagitis; D68.59 Other primary thrombophilia; Z79.890 Hormone replacement therapy; Z79.899 Other long term (current) drug therapy; E03.9 Hypothyroidism, unspecified; E04.1 Nontoxic single thyroid nodule
CPT/HCPCS: 47563; 00790; 36415; 74300; 76000; 80048; 80076; 84439; 84443; 85027; 85610; 85730; 88304; 93005; J7120; J2405

== ENCOUNTER → 2024-05-01 | Outpatient (CLI) | payer BC, SELFPAY ==
[2024-05-01 11:42] LABS: AST(SGOT) 11 U/L (15-37); Alanine Aminotransfer ALT/SGPT 28 U/L (13-56); Albumin, Serum 4.1 g/dL (3.2-5.0); Alkaline Phosphatase 42 U/L (45-117); Bilirubin, Direct 0.19 mg/dL (0.00-0.30); Protein, Total 7.1 g/dL (6.4-8.2)
== END | disposition home or self-care (01) ==
LOC: LAB 10:22
PROVIDERS: PCP Family Medicine; Referring Provider Surgery; Visit Provider Surgery
DX: K82.8 Other specified diseases of gallbladder (principal)
CPT/HCPCS: 36415; 80076

== ENCOUNTER → 2024-05-12 | Outpatient (CLI) | payer BC, SELFPAY ==
[2024-05-12 13:05] LABS: AST(SGOT) 9 U/L (15-37); Alanine Aminotransfer ALT/SGPT 20 U/L (13-56); Albumin, Serum 3.7 g/dL (3.2-5.0); Alkaline Phosphatase 46 U/L (45-117); Bilirubin, Direct 0.11 mg/dL (0.00-0.30); Globulin 3.1 g/dL (2.2-4.2); Protein, Total 6.8 g/dL (6.4-8.2)
== END | disposition home or self-care (01) ==
LOC: LAB 11:41
PROVIDERS: PCP Family Medicine; Referring Provider Surgery; Visit Provider Surgery
DX: R93.2 Abnormal findings on diagnostic imaging of liver and biliary tract (principal); K82.8 Other specified diseases of gallbladder
CPT/HCPCS: 36415; 80076

== ENCOUNTER 2024-06-08 11:15 | Day surgery (SDC) | payer BC, SELFPAY ==
--- NOTE | 2024-06-04 07:06 | PAT.ANE_ITS ---
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 When Was Last Pacemaker Check QUESTION #4 FULL TEXT: You/Your Family Experience fever (hyperthermia) with Anesthesia Last Oral Intake Last Oral intake: Last Oral Intake NPO since Meds taken in AM with sips of water? Meds patient instructed to take am of surgery PONV PONV - soldering machine operator automatic: PONV - soldering machine operator automatic Female Yes 06/03/24 14:36 HX of Motion Sickness Yes 06/03/24 14:36 HX of N/V After Surgery Yes 06/03/24 14:36 Non-Smoker Yes 06/03/24 14:36 Duration of Surgery greater No 06/03/24 14:36 than 60 minutes Number of Risk Factors 4 06/03/24 14:36 PONV Score Severe Risk 06/03/24 14:36 Height & Weight Height & Weight: Anesthesia: Height & Weight Height 5 ft 1 in 04/29/24 10:12 Respiratory Assessment Respiratory Assessment - soldering machine operator automatic: Respiratory Tract Infection Hx - soldering machine operator automatic Hx Respiratory Tract Infection No 06/03/24 14:36 STOP Sleep Apnea STOP Sleep Apnea - soldering machine operator automatic: STOP Sleep Apnea - soldering machine operator automatic Hx Hypertension No 06/03/24 14:36 Hx Sleep Apnea No 06/03/24 14:36 CPAP No 06/03/24 14:36 BIPAP No 06/03/24 14:36 Do you snore loudly (louder No 06/03/24 14:36 than talking or can be heard Do you often feel tired/ No 06/03/24 14:36 fatigued/ sleepy during daytime? Has anyone observed you stop No 06/03/24 14:36 breathing during sleep? STOP Results Negative 06/03/24 14:36 QUESTION #5 FULL TEXT : Do you snore loudly (louder than talking or can be heard through closed doors)? 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 Specify any problems Hx of Preganancy in last 3 N/A 06/03/24 14:36 Months Nurse Filling Out Transfusion NBUCHER 06/03/24 14:36 & Questions: Date: 06/03/24 06/03/24 14:36 Time: 14:36 06/03/24 14:36 Patient unable to answer at this time (ie. confused, unrespo /Reproduction History /Reproductive History - soldering machine operator automatic: /Reproductive Hx- soldering machine operator automatic Hx Now Gestational Age (in weeks): EDC: Hx Hx Para Hx Section SAB No 06/03/24 14:36 PFSH Medical History Abnormal cholangiogram Fatty liver Easy bruising Syncope History of diverticulitis Gastric reflux Shortness of breath on exertion History of echocardiogram History of irregular heartbeat Gallbladder problem Thyroid nodule Wears contact lenses Arthritis Leg cramps Former smoker Infected sebaceous cyst of skin Osteoarthritis History of TMJ syndrome DVT (deep venous thrombosis) (~2016) Obesity Pulmonary embolism (~2015) Migraine Hypothyroidism Home Medications ?Medication ?Instructions ?Recorded ?Last Taken ?Type multivitamin 1 ea PO DAILY 10/26/19 10/25/19 History melatonin 10 mg capsule 10 mg PO HS PRN sleep 04/03/23 Unknown History omeprazole 20 mg capsule,delayed 20 mg PO DAILY PRN GERD 04/03/23 Unknown History release cyanocobalamin-liver extract tablet 1 tab PO DAILY 04/24/24 Unknown History levothyroxine 100 mcg capsule 150 mcg PO JALLOH 04/24/24 Unknown History levothyroxine 100 mcg tablet 100 mcg PO MOTUWETHFRSA 04/24/24 04/29/24 History Allergy/AdvReac Type Severity Reaction Status Date / Time Sulfa (Sulfonamide Allergy Hives Verified 06/03/24 14:34 Antibiotics) morphine AdvReac Other Verified 06/03/24 14:34 Family History Father Protein C deficiency Surgical History (Updated 06/03/24 @ 14:37 by Kimmie Landeros) History of cholecystectomy S/P cholecystectomy Hx of colonoscopy History of removal of cyst History of endometrial ablation H/O tubal ligation History of mandibular surgery History of bunionectomy Social History Smoking Status: Former smoker alcohol intake: current details: Occasional - one small glass of wine substance use type: does not use what type of physical activity do you participate in: walking Audit: Pertinent Findings Pertinent Findings EKG Perinent findings: 04/27/24 [address]sr 72, st abn poss digitalis effect Recommendation Anesthesia Recommendation Anesthesia recommendation: OPTIMIZED for anesthesia
[2024-06-08] VITALS (9 sets, daily range): BP systolic 113–143; BP diastolic 71–102; PULSE 60–87; RESP 16–17; TEMP 36.2–36.5; O2SAT 94–100; BMI 31.1
--- NOTE | 2024-06-08 11:27 | EKG12_ITS ---
Test Reason : preop Blood Pressure : */* mmHG Vent. Rate : 62 BPM Atrial Rate : 62 BPM P-R Int : 132 ms QRS Dur : 86 ms QT Int : 416 ms P-R-T Axes : -4 43 6 degrees QTcB Int : 422 ms Normal sinus rhythm Normal ECG When compared with ECG of 27-Apr-2024 12:18, No significant change was found Confirmed by TEO APONTE, EMILY ([id number]), web content editor REGGIE CASE ([id number]) on 06/12/2024 6:14:56 AM Referred By: Kamar Sanchez Confirmed By: EMILY BRUCE MD
--- NOTE | 2024-06-08 11:30 | RAD_ITS ---
EXAM: FL FLUOROSCOPY < 1 HOUR CLINICAL INDICATION: ERCP TECHNIQUE: Fluoroscopic images performed in multiple projections. Fluoroscopic guidance was provided by a physician. 22.37 mGy and 80.9 seconds COMPARISON: No relevant prior studies available. FINDINGS AND RAD/ERCP Biliary/Pancreas IMPRESSION: Intraoperative fluoroscopic images utilized by the operative team. Refer to the operative note for complete details. Electronically Signed: Yassine Figueroa DO at 23:31 EST ,
[2024-06-08] MEDS: 0.9% Normal Saline (1000mL) 1,000 ML 15 ML IV (11:48)
--- NOTE | 2024-06-08 12:02 | PRE.ANES_ITS ---
ASA Classification* ASA Classification ASA Classification: 2 Assessment & Plan Anesthesia* Anesthesia Assessment Anesthesia Assessment: Discussed sedation and/or anesthesia options, risks, benefits, and alternatives with patient/parents/legal guardian/POA. Questions invited. The patient/parents/legal guardian/POA seems to understand and agrees to proceed with anesthesia plan. Reviewed the physical assessment, medical history, allergy history and patient home medications list prior to surgery/procedure/anesthetic and documented any changes. Performed airway and anesthesia risk assessments. Anesthesia Type Anesthesia Type: General History Source History Obtained from:: Patient and Chart Anesthesia Focused Assessment* Temperature: 97.6 F Pulse Rate: 60 Blood Pressure: 137/86 Respiratory Rate: 17 Pulse Ox: 100 Oxygen Delivery Method: Room Air Airway Assessment Mouth opens: >3 cm Mallampati Score: II Teeth Condition: Caps/Crowns (Multiple crowns. They are all tight.) Neck Range of motion (ROM): Full ROM Focused Labs Anesthesia Preop lab: CBC WBC 5.8 K/mm3 (4.4-11.0) 04/27/24 12:34 RBC 4.62 M/mm3 (4.2-5.4) 04/27/24 12:34 Hgb 13.9 g/dL (12.0-15.0) 04/27/24 12:34 Hct 40.5 % (37-47) 04/27/24 12:34 Plt Count 253 K/mm3 (150-450) 04/27/24 12:34 CHEMISTRY Potassium 3.8 mmol/L (3.5-5.1) 04/27/24 12:34 Sodium 139 mmol/L (136-145) 04/27/24 12:34 BUN 18 mg/dL (7-18) 04/27/24 12:34 Creatinine 0.68 mg/dL (0.55-1.02) 04/27/24 12:34 Glucose 90 mg/dL (74-106) 04/27/24 12:34 TSH 1.880 uIU/mL (0.358-3.740) 04/27/24 12:34 COAG PT 13.3 SECONDS (11.7-14.9) 04/27/24 12:34 HCG, Quant < 1 mIU/mL (<9 non-preg) 08/26/15 15:17 Urine Test Negative Negative 12/29/15 06:25 Pre-Assessment Diagnosis/Proposed Procedure Planned Operative Procedure(s): ERCP Anesthesia History 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 When Was Last Pacemaker Check QUESTION #4 FULL TEXT: You/Your Family Experience fever (hyperthermia) with Anesthesia Last Oral Intake Last Oral intake: Last Oral Intake NPO since 06:45 06/08/24 11:40 Meds taken in AM with sips of Yes 06/08/24 11:40 water? Meds patient instructed to take am of surgery Any additional information?: Yes NPO since: 06:45 (Patient had black coffee at 6:45 AM.) Meds taken in AM with sips of water?: Yes PONV PONV - fountain vending mechanic: PONV - fountain vending mechanic Female Yes 06/03/24 14:36 HX of Motion Sickness Yes 06/03/24 14:36 HX of N/V After Surgery Yes 06/03/24 14:36 Non-Smoker Yes 06/03/24 14:36 Duration of Surgery greater No 06/03/24 14:36 than 60 minutes Number of Risk Factors 4 06/03/24 14:36 PONV Score Severe Risk 06/03/24 14:36 Height & Weight Height & Weight: Anesthesia: Height & Weight Height 5 ft 1 in 06/08/24 11:40 Weight: 74.7 kg 06/08/24 11:40 Body Mass Index (BMI) 31.1 06/08/24 11:40 Respiratory Assessment Respiratory Assessment - fountain vending mechanic: Respiratory Tract Infection Hx - fountain vending mechanic Hx Respiratory Tract Infection No 06/03/24 14:36 STOP Sleep Apnea STOP Sleep Apnea - fountain vending mechanic: STOP Sleep Apnea - fountain vending mechanic Hx Hypertension No 06/03/24 14:36 Hx Sleep Apnea No 06/03/24 14:36 CPAP No 06/03/24 14:36 BIPAP No 06/03/24 14:36 Do you snore loudly (louder No 06/03/24 14:36 than talking or can be heard Do you often feel tired/ No 06/03/24 14:36 fatigued/ sleepy during daytime? Has anyone observed you stop No 06/03/24 14:36 breathing during sleep? STOP Results Negative 06/03/24 14:36 QUESTION #5 FULL TEXT : Do you snore loudly (louder than talking or can be heard through closed doors)? 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 Specify any problems Hx of Preganancy in last 3 N/A 06/03/24 14:36 Months Nurse Filling Out Transfusion NBUCHER 06/03/24 14:36 & Questions: Date: 06/03/24 06/03/24 14:36 Time: 14:36 06/03/24 14:36 Patient unable to answer at this time (ie. confused, unrespo /Reproduction History /Reproductive History - fountain vending mechanic: /Reproductive Hx- fountain vending mechanic Hx Now Gestational Age (in weeks): EDC: Hx Hx Para Hx Section SAB No 06/03/24 14:36 Active Medications Active Medications: Current Medications Generic Name Dose Route Start Last Admin Trade Name Freq PRN Reason Stop Dose Admin Sodium Chloride 1,000 mls @ 15 mls/hr 06/08/24 11:45 06/08/24 11:48 IV 06/14/24 01:04 15 mls/hr .Q48H OSCAR Administration Protocol PFSH Medical History Abnormal cholangiogram Fatty liver Easy bruising Syncope History of diverticulitis Gastric reflux Shortness of breath on exertion History of echocardiogram History of irregular heartbeat Gallbladder problem Thyroid nodule Wears contact lenses Arthritis Leg cramps Former smoker Infected sebaceous cyst of skin Osteoarthritis History of TMJ syndrome DVT (deep venous thrombosis) (~2016) Obesity Pulmonary embolism (~2015) Migraine Hypothyroidism Home Medications ?Medication ?Instructions ?Recorded ?Last Taken ?Type multivitamin 1 ea PO DAILY 10/26/19 06/07/24 History melatonin 10 mg capsule 10 mg PO HS PRN sleep 04/03/23 06/07/24 History omeprazole 20 mg capsule,delayed 20 mg PO DAILY PRN GERD 04/03/23 06/08/24 History release cyanocobalamin-liver extract tablet 1 tab PO DAILY 04/24/24 06/07/24 History levothyroxine 100 mcg capsule 150 mcg PO JALLOH 04/24/24 06/07/24 History levothyroxine 100 mcg tablet 100 mcg PO MOTUWETHFRSA 04/24/24 06/06/24 History Allergy/AdvReac Type Severity Reaction Status Date / Time Sulfa (Sulfonamide Allergy Hives Verified 06/08/24 11:40 Antibiotics) morphine AdvReac Other Verified 06/08/24 11:40 Family History Father Protein C deficiency Surgical History History of cholecystectomy S/P cholecystectomy Hx of colonoscopy History of removal of cyst History of endometrial ablation H/O tubal ligation History of mandibular surgery History of bunionectomy Social History Smoking Status: Former smoker alcohol intake: current details: Occasional - one small glass of wine substance use type: does not use what type of physical activity do you participate in: walking Review of Systems (Anesthesia) ROS Narrative System reviewed and no additional complaints, except as documented.
--- NOTE | 2024-06-08 13:41 | HP.PCM_ITS ---
HPI - General General Date of Admission: 06/08/24 Date of Service: 06/08/24 HPI Narrative CHANELLE WOO, is a 49-year-old female presents for follow-up for laparoscopic cholecystectomy. Patient's reported cholangiogram did question possible choledocholithiasis. LFTs have been checked which have remained normal postoperatively. Patient still reports abdominal discomfort 2?3/10 right upper quadrant with occasional sharp pain that seems to be more room related to movement. Patient states she was able to eat tacos lettuce hamburger sour cream and cheese without any issues. Patient did have MRCP scheduled at [place] 05/21. It showed the presence of a filling defect in the distal common bile duct. She comes in for ERCP with stone removal. [facility] Medical History Abnormal cholangiogram Fatty liver Easy bruising Syncope History of diverticulitis Gastric reflux Shortness of breath on exertion History of echocardiogram History of irregular heartbeat Gallbladder problem Thyroid nodule Wears contact lenses Arthritis Leg cramps Former smoker Infected sebaceous cyst of skin Osteoarthritis History of TMJ syndrome DVT (deep venous thrombosis) (~2016) Obesity Pulmonary embolism (~2015) Migraine Hypothyroidism Home Medications ?Medication ?Instructions ?Recorded ?Last Taken ?Type multivitamin 1 ea PO DAILY 10/26/19 06/07/24 History melatonin 10 mg capsule 10 mg PO HS PRN sleep 04/03/23 06/07/24 History omeprazole 20 mg capsule,delayed 20 mg PO DAILY PRN GERD 04/03/23 06/08/24 Hist ory release cyanocobalamin-liver extract tablet 1 tab PO DAILY 04/24/24 06/07/24 History levothyroxine 100 mcg capsule 150 mcg PO JALLOH 04/24/24 06/07/24 History levothyroxine 100 mcg tablet 100 mcg PO MOTUWETHFRSA 04/24/24 06/06/24 History Allergy/AdvReac Type Severity Reaction Status Date / Time Sulfa (Sulfonamide Allergy Hives Verified 06/08/24 11:40 Antibiotics) morphine AdvReac Other Verified 06/08/24 11:40 Family History Father Protein C deficiency Surgical History History of cholecystectomy S/P cholecystectomy Hx of colonoscopy History of removal of cyst History of endometrial ablation H/O tubal ligation History of mandibular surgery History of bunionectomy Social History Smoking Status: Former smoker alcohol intake: current details: Occasional - one small glass of wine substance use type: does not use what type of physical activity do you participate in: walking ROS Constitutional Constitutional: Denies fatigue, fever(s), poor appetite, weight gain or weight loss Gastrointestinal Gastrointestinal: Denies belching, bloating, change in bowel habits, change in stool character, chewing difficulty, coffee ground emesis, constipation, cramping, diarrhea, dyspepsia, dysphagia, early satiety, excessive flatus, fecal incontinence, heartburn, hematemesis, hematochezia, hemorrhoids, loose stools, melena, nausea, odynophagia, rectal bleeding, tenesmus, vomiting or weight changes Vital Signs Vital Signs Vital Signs: 06/08/24 11:40 06/08/24 11:40 06/08/24 12:10 Temperature 97.6 F L 97.6 F L Temperature Source Temporal Pulse Rate 60 60 Respiratory Rate 17 17 Respiratory Pattern Normal Blood Pressure 137/86 H 137/86 H Blood Pressure Mean 103 Blood Pressure Source Monitor Blood Pressure Position Semi-Fowlers Blood Pressure Location Right Arm Pulse Ox 100 100 Oxygen Delivery Method Room Air Room Air Weight Weight: 164 lb 10.965 oz Body Mass Index (BMI) 31.1 Physical Exam Const alert, oriented x3, no apparent distress and healthy appearing General Appearance: cooperative GI normal to inspection, nondistended, normoactive bowel sounds, soft to palpation, non-tender and non-distended Percussion: normal to percussion Rectal Exam: deferred Assessment & Plan Assessment/Plan (1) Choledocholithiasis: PLAN: 49-year-old with a history of cholecystitis status post cholecystectomy who had ongoing right upper quadrant pain and was discovered to have filling defect on MRCP. She will need to undergo ERCP with stone removal and possible stent placement. She was explained alternatives, risk, benefits include not withstanding bleeding, infection, sepsis, perforation, need for charge and . She will have an ASA of 3.
--- NOTE | 2024-06-08 14:44 | OP.ERCP_ITS ---
Patient Name: Apoorva Lancaster Procedure Date: 06/08/2024 1:50 PM Date of : 1975 Age: 49 Procedure: ERCP Indications: Bile duct stone(s) Providers: Mikael Pablo DO Referring MD: Kamar Sanchez Medicines: Monitored Anesthesia Care Patient Profile: This is a 49 year old female. Refer to note in patient chart for documentation of history and physical. Patient has symptoms of acute right upper quadrant abdominal pain. This patient has no history of previous ERCP. She is status post laparoscopic cholecystectomy within the past three months. Previously obtained MRI showed a stone in the biliary tree. Complications: No immediate complications. Procedure: Pre-Anesthesia Assessment: - Prior to the procedure, a History and Physical was performed, and patient medications and allergies were reviewed. The patient is competent. The risks and benefits of the procedure and the sedation options and risks were discussed with the patient. All questions were answered and informed consent was obtained. Patient identification and proposed procedure were verified in the pre-procedure area. Mental Status Examination: alert and oriented. Airway Examination: normal oropharyngeal airway and neck mobility. Respiratory Examination: clear to auscultation. CV Examination: normal. Prophylactic Antibiotics: The patient does not require prophylactic antibiotics. Prior Anticoagulants: The patient has taken no anticoagulant or antiplatelet agents. ASA Grade Assessment: II - A patient with mild systemic disease. After reviewing the risks and benefits, the patient was deemed in satisfactory condition to undergo the procedure. The anesthesia plan was to use general anesthesia. Immediately prior to administration of medications, the patient was re-assessed for adequacy to receive sedatives. The heart rate, respiratory rate, oxygen saturations, blood pressure, adequacy of pulmonary ventilation, and response to care were monitored throughout the procedure. The physical status of the patient was re-assessed after the procedure. After obtaining informed consent, the scope was passed under direct vision. Throughout the procedure, the patient's blood pressure, pulse, and oxygen saturations were monitored continuously. The Duodenoscope was introduced through the mouth, and advanced to the duodenum and used to inject contrast into the bile duct. The ERCP was accomplished without difficulty. The patient tolerated the procedure well. Scope In: 2:19:04 PM Scope Out: 2:36:35 PM Total Procedure Duration Time 0 hours 17 minutes 31 seconds Findings: The reel assembler film was normal. The esophagus was successfully intubated under direct vision. The scope was advanced to a normal major papilla in the descending duodenum without detailed examination of the pharynx, larynx and associated structures, and upper GI tract. The upper GI tract was grossly normal. The bile duct was deeply cannulated with the short-nosed traction sphincterotome. Contrast was injected. I personally interpreted the bile duct images. There was brisk flow of contrast through the ducts. Image quality was adequate. Contrast extended to the main bile duct. Contrast extended to the cystic duct. Contrast extended to the bifurcation. Contrast extended to the hepatic ducts. Contrast extended to the entire biliary tree. Opacification of the entire biliary tree except for the gallbladder, entire opacified area, common bile duct, left and right hepatic ducts and all intrahepatic branches and entire biliary tree was successful. The maximum diameter of the ducts was 9 mm. The lower third of the main bile duct contained one stone, which was 6 mm in diameter. The cystic duct, left main hepatic duct, left intrahepatic branches and entire biliary tree were moderately dilated and segmentally dilated, with a stone causing an obstruction. The largest diameter was 10 mm. A cholecystectomy had been performed. A long 0.021 inch Jagwire was passed into the biliary tree. A 5 mm biliary sphincterotomy was made with a traction (standard) sphincterotome using ERBE electrocautery. There was no post-sphincterotomy bleeding. The biliary tree was swept with a 12 mm balloon starting at the upper third of the main bile duct, middle third of the main bile duct, lower third of the main duct, bifurcation, left intrahepatic duct(s) and left main hepatic duct. Sludge was swept from the duct. All stones were removed. Impression: - The cystic duct, left main hepatic duct, left intrahepatic branches and entire biliary tree were moderately dilated, with a stone causing an obstruction. - The patient has had a cholecystectomy. - Choledocholithiasis was found. Complete removal was accomplished by biliary sphincterotomy and balloon extraction. - A biliary sphincterotomy was performed. - The biliary tree was swept. Procedure Code(s): --- Professional --- 04950, Endoscopic retrograde cholangiopancreatography (ERCP); with removal of calculi/debris from biliary/pancreatic duct(s) 59502, Endoscopic retrograde cholangiopancreatography (ERCP); with sphincterotomy/papillotomy 72352, 26, Endoscopic catheterization of the biliary ductal system, radiological supervision and interpretation CPT copyright 2021 [employer] [place] [employer]. All rights reserved. The codes documented in this report are preliminary and upon special education curriculum specialist review may be revised to meet current compliance requirements. Mikael Pablo DO 06/08/2024 2:44:17 PM This report has been signed electronically. Number of Addenda: 0 Note Initiated On: 06/08/2024 1:50 PM
--- NOTE | 2024-06-08 14:44 | OP.CCLET_ITS ---
06/08/2024 Kamar Sanchez [address] [place] [address] [place] [address] Re : ERCP procedure for February [facility] Dear Dr. Sanchez This procedure was performed on Saturday, June 08, 2024. My impressions and recommendations are as follows: Impressions : - The cystic duct, left main hepatic duct, left intrahepatic branches and entire biliary tree were moderately dilated, with a stone causing an obstruction. - The patient has had a cholecystectomy. - Choledocholithiasis was found. Complete removal was accomplished by biliary sphincterotomy and balloon extraction. - A biliary sphincterotomy was performed. - The biliary tree was swept. Recommendations : My findings are described in the full procedure note, which is enclosed. If I can be of further assistance, please feel free to contact me at . Sincerely, Mikael Pablo, 06/08/2024 2:44:17 PM This report has been signed electronically.
--- NOTE | 2024-06-08 14:56 | PCM.POST.ANE ---
Anesthesia: Postop Eval I Current Vital Signs Temperature: 97.7 F Pulse Rate: 78 Blood Pressure: 143/102 Respiratory Rate: 16 Pulse Ox: 99 Oxygen Delivery Method: Room Air Assessment Airway patent: Yes Spontaneous unlabored respirations: Yes Mental status: Awake nausea: No Vomiting: No Anesthesia Complication: No Fluid Hydration Crystalloid volume administer (ml): 800 Total IV fluid infused: 800 Progress Note Anesthesia document: Postop Eval 1 completed: Yes
--- NOTE | 2024-06-08 15:12 | PCM.POSTANE2 ---
Anesthesia Postop Eval I Sum Postop Eval Completion status Anesthesia document: Postop Eval 1 completed: Yes Anesthesia Postop Eval I Summary Anesthesia Postop Eval I Summary: Anesthesia Postop Eval I: Assessment Summary Airway patent Yes 06/08/24 14:57 [email or web address] Spontaneous unlabored Yes 06/08/24 14:57 [email or web address] respirations Mental status Awake 06/08/24 14:57 [email or web address] nausea No 06/08/24 14:57 [email or web address] Vomiting No 06/08/24 14:57 [email or web address] Anesthesia Postop Eval I: Fluid Summary Crystalloid volume administer 800 06/08/24 14:57 [email or web address] (ml) Colloids volume administered ( ml) Blood Product volume administered (ml) Total IV fluid infused 800 06/08/24 14:57 [email or web address] Anesthesia Postop Eval I: Summary Notes Anesthesia Complication No 06/08/24 14:57 [email or web address] Anesthesia Complication Comment: Post-operative progress note Anesthesia: Postop Eval II Evaluation Mental status: Awake and Calm Pain Level: 1 nausea: No Vomiting: No Complications Anesthesia Complication: No
[2024-06-08] MEDS: Acetaminophen 500 MG Tablet 1000 MG PO (16:15)
== END 2024-06-08 16:52 | disposition home or self-care (01) ==
LOC: EN 11:16 → AC 11:18
PROVIDERS: PCP Family Medicine; Referring Provider Family Medicine; Visit Provider Internal Medicine Gastroenterology
PROC: (CPT 43260; principal; 2024-06-08 12:10)
DX: K80.51 Calculus of bile duct without cholangitis or cholecystitis with obstruction (principal); Z87.891 Personal history of nicotine dependence; Z90.49 Acquired absence of other specified parts of digestive tract; K21.9 Gastro-esophageal reflux disease without esophagitis; E03.9 Hypothyroidism, unspecified; Z79.890 Hormone replacement therapy
CPT/HCPCS: 43262; 43264; 00732; 74330; 76000; 93005; A4216; J2405

== ENCOUNTER → 2024-07-27 | Outpatient (CLI) | payer BC, SELFPAY ==
[2024-07-27 10:02] LABS: Absolute Lymphocyte Count 1.93 X10^3/uL (0.83-4.51); Basophil# 0.05 X10^3/uL; Basophil% 0.8 % (0-1); Eosinophil# 0.08 X10^3/uL; Eosinophils% 1.2 % (0-5); Hematocrit 43.7 % (37-47); Hemoglobin 14.6 g/dL (12.0-15.0); Lymphocyte # 1.93 X10^3/ul (0.83-4.51); Lymphocyte % 29.6 % (19-41); Mean Corp Hgb Conc 33.4 g/dL (32-36); Mean Corpuscular Volume 89.7 fL (81-99); Mean Platelet Vol. 8.5 fl (6.2-12.0); Monocyte# 0.48 X10^3/uL; Monocyte% 7.4 % (0-10); NRBC Flagged by Analyzer 0 % (0-5); Neutrophil # 3.95 X10^3/uL (2.7-7.7); Neutrophil % 60.7 % (47-70); Platelet Count 244 K/mm3 (150-450); RBC Distribution Width CV 13.1 % (11.6-14.6); RBC Distribution Width SD 42.8 fl (35.1-43.9); Red Blood Count 4.87 M/mm3 (4.2-5.4); White Blood Count 6.5 K/mm3 (4.4-11.0)
[2024-07-27 11:00] LABS: AST(SGOT) 15 U/L (15-37); Alanine Aminotransfer ALT/SGPT 20 U/L (13-56); Albumin, Serum 4.1 g/dL (3.2-5.0); Alkaline Phosphatase 38 U/L (45-117); Bilirubin, Direct 0.14 mg/dL (0.00-0.30); Globulin 2.9 g/dL (2.2-4.2)
== END | disposition home or self-care (01) ==
LOC: LAB 09:02
PROVIDERS: PCP Family Medicine; Referring Provider Nurse Practitioner Acute Care; Visit Provider Nurse Practitioner Acute Care
DX: R10.11 Right upper quadrant pain (principal); R10.13 Epigastric pain; R11.0 Nausea
CPT/HCPCS: 36415; 80076; 85025

== ENCOUNTER → 2024-07-30 | Outpatient (CLI) | payer BC, SELFPAY ==
--- NOTE | 2024-07-30 07:51 | US_ITS ---
PROCEDURE: ABDOMEN LIMITED REASON FOR EXAM: Right upper quadrant and epigastric pain following cholecystectomy. COMPARISON: MRI abdomen 05/21/2024. FINDINGS: No free fluid is identified in visualized areas. Liver: A peripheral left hepatic echogenic hypovascular process is measured at 4 x 6 x 5 mm. This is more fully imaged and evaluated on the MRI abdomen of 05/21/2024. No evidence of hepatomegaly, with the liver measured at 14.8 cm in length. Otherwise, no area of abnormal hepatic echogenicity is seen Gallbladder: Surgically absent. Common bile duct: Normal measuring 6 mm diameter. Pancreas: Visualized portions are sonographically unremarkable. Visualized portions of the right kidney are unremarkable. The right kidney is measured at 11.0 x 5.4 x 4.8 cm. Cortical thickness is measured at 19 mm. No right upper quadrant ascites. US/Abdomen Limited IMPRESSION: 1. No acute process is seen. 2. Additional findings as described and discussed. Reading Location: [id number]
== END | disposition home or self-care (01) ==
PROVIDERS: PCP Family Medicine; Referring Provider Nurse Practitioner Acute Care; Visit Provider Nurse Practitioner Acute Care
DX: R10.11 Right upper quadrant pain (principal); R10.13 Epigastric pain; R11.0 Nausea
CPT/HCPCS: 76705

== ENCOUNTER → 2024-08-13 | Outpatient (CLI) | payer BC, SELFPAY ==
[2024-08-13 11:57] LABS: Erythrocyte Sedimentation Rate < 1 mm/hr (0-30)
[2024-08-13 21:14] LABS: CRP < 3.00 mg/L (0.0-3.0); Lipase 34 U/L (13-75)
[2024-08-13 22:01] LABS: Amylase 62 U/L (28-100)
== END | disposition home or self-care (01) ==
LOC: LAB 11:43
PROVIDERS: PCP Family Medicine; Referring Provider Nurse Practitioner Acute Care; Visit Provider Nurse Practitioner Acute Care
DX: R11.0 Nausea (principal); R10.13 Epigastric pain; R10.11 Right upper quadrant pain; K80.50 Calculus of bile duct without cholangitis or cholecystitis without obstruction; Z90.49 Acquired absence of other specified parts of digestive tract
CPT/HCPCS: 36415; 82150; 83690; 85652; 86140

== ENCOUNTER → 2024-09-02 | Outpatient (CLI) | payer BC, SELFPAY ==
--- NOTE | 2024-09-02 11:33 | NM_ITS ---
PROCEDURE: HEPATOBILLIARY IMAGING REASON FOR EXAM: R/O BILE LEAK Cholecystectomy 04/29/2024. Stone removed during ERCP May 2024. Persistent right upper quadrant pain. TECHNIQUE: Intravenous Choletec with planar imaging of the abdomen. RADIOPHARMACEUTICAL: 5.5 mCi mebrofenin intravenous. COMPARISON: None. FINDINGS: There is good uptake and excretion of the radiopharmaceutical by the liver. Normal gallbladder visualization with the gallbladder identified by 7 minutes. No bile leak is evident. NM/Hepatobilliary Imaging IMPRESSION: Negative examination. No bile leak is identified. Reading Location: [id number]
== END | disposition home or self-care (01) ==
LOC: NM 11:33
PROVIDERS: PCP Family Medicine; Referring Provider Nurse Practitioner Acute Care; Visit Provider Nurse Practitioner Acute Care
DX: R11.0 Nausea (principal); R10.13 Epigastric pain; R10.11 Right upper quadrant pain; K80.50 Calculus of bile duct without cholangitis or cholecystitis without obstruction; Z90.49 Acquired absence of other specified parts of digestive tract
CPT/HCPCS: 78226; A9537

== ENCOUNTER → 2024-09-29 | Outpatient (CLI) | payer BC, SELFPAY ==
[2024-09-29 11:51] LABS: Hepatitis B Surface Antibody REAC; Hepatitis B Surface Antigen Nonreactive (Nonreactive); Hepatitis C Antibody Nonreactive (Nonreactive)
[2024-09-30 05:07] LABS: Hepatitis A AB, Total Negative (Negative); Hepatitis B Core Ab Total Negative (Negative)
== END | disposition home or self-care (01) ==
LOC: LAB 09:30
PROVIDERS: PCP Family Medicine; Referring Provider Nurse Practitioner Acute Care; Visit Provider Nurse Practitioner Acute Care
DX: K76.0 Fatty (change of) liver, not elsewhere classified (principal)
CPT/HCPCS: 36415; 86704; 86706; 86708; 86803; 87340

== ENCOUNTER → 2025-02-05 | Outpatient (CLI) | payer BC, SELFPAY ==
--- NOTE | 2025-02-05 15:40 | VDLE_ITS ---
Reason For Study Reason For Study: Right leg pain RIGHT LEFT GSV is normal. CFV is compressible, spontaneous, phasic, competent, CFV is compressible, spontaneous, phasic, competent and demonstrates normal augmentation. and demonstrates normal augmentation. FV is compressible, spontaneous, phasic, competent and demonstrates normal augmentation. POP V is compressible, spontaneous, phasic, competent and demonstrates normal augmentation. T/P Trunk is compressible. PTV is compressible. RT PerV is compressible. Procedure This is a venous duplex using B-mode, color flow and spectral Doppler. Exam performed in department. A preliminary report was called and/or faxed to Wolfgang LYNNE. VL/Venous Duplex US, Unilateral Interpretation Summary Deep veins of the right lower extremity are patent and compressible segmentally . There is no evidence of right lower extremity deep vein thrombosis. Valvular competence appears intact within the p roximal deep venous system on the right . The right great saphenous vein appears patent and compressible segmentally. The left common femoral vein is patent and compressible . Ordering Physician: Kimmy Goss Referring Physician: Kamar Sanchez Performed By: Rachelle Lewis RVT
== END | disposition home or self-care (01) ==
PROVIDERS: PCP Family Medicine; Referring Provider Nurse Practitioner Family; Visit Provider Nurse Practitioner Family
DX: M79.661 Pain in right lower leg (principal); D68.59 Other primary thrombophilia; Z86.718 Personal history of other venous thrombosis and embolism
CPT/HCPCS: 93971

== ENCOUNTER → 2025-04-12 | Outpatient (CLI) | payer BC, SELFPAY ==
--- NOTE | 2025-04-12 11:40 | BI_ITS ---
EXAM: SCRN MAMM (CAD)W/GILBERT BILAT DATE: 04/12/2025 CLINICAL HISTORY: F, Age 50 y/o , SCREENING TECHNIQUE: Procedure Code: [id number] Modality: MG Procedure: SCRN MAMM (CAD)W/GILBERT BILAT COMPARISON: Prior exam(s) dated 04/09/2024 and 03/22/2023. FINDINGS: TISSUE DENSITY: There are scattered areas of fibroglandular density. Bilateral Breast Mammographic Findings: No significant masses, calcifications or other abnormalities are identified. Benign-appearing round microcalcifications are seen in both breasts. BI/SCRN MAMM (CAD)W/GILBERT BILAT IMPRESSION: Benign screening mammogram OVERALL FINAL ASSESSMENT BI-RADS 2: BENIGN RECOMMENDATION: Routine annual follow-up in 1 Year Additional Recommendation none A letter with findings and recommendations will be mailed to the patient. Reading Location: [id number]
== END | disposition home or self-care (01) ==
PROVIDERS: PCP Family Medicine; Referring Provider Family Medicine; Visit Provider Family Medicine
DX: Z12.31 Encounter for screening mammogram for malignant neoplasm of breast (principal)
CPT/HCPCS: 77063; 77067

== ENCOUNTER → 2025-04-19 | Outpatient (CLI) | payer BC, SELFPAY | END | disposition home or self-care (01) | LOC: LAB 11:44 | PROVIDERS: PCP Family Medicine; Referring Provider Internal Medicine Endocrinology, Diabetes & Metabolism; Visit Provider Internal Medicine Endocrinology, Diabetes & Metabolism | DX: E03.8 Other specified hypothyroidism (principal); E06.3 Autoimmune thyroiditis | CPT/HCPCS: 36415; 84439; 84443 ==

== ENCOUNTER → 2025-04-22 | Outpatient (CLI) | payer BC, SELFPAY ==
--- NOTE | 2025-04-22 14:48 | VDLE_ITS ---
Reason For Study Reason For Study: Right leg pain RIGHT CFV is compressible, spontaneous, phasic, competent and demonstrates normal augmentation. FV is compressible, spontaneous, phasic, competent and demonstrates normal augmentation. POP V is compressible, spontaneous, phasic, competent and demonstrates normal augmentation. T/P Trunk is compressible. PTV is compressible. RT PerV is compressible. SFJ is competent and measures 0.72 cm. GSV proximal thigh measures 0.49 x 0.49 cm. GSV above knee is competent. GSV at knee measures 0.48 x 0.47 cm. GSV below knee is INCOMPETENT for greater than 0.5 seconds. ASV proximal calf is INCOMPETENT for greater than 0.5 seconds and measures 0.23 x 0.23 cm. SSV mid calf is competent and measures 0.21 x 0.21 cm. Procedure This is a venous duplex using B-mode, color flow and spectral Doppler. Exam performed in department. Patient was scanned in reverse Trendelenburg position during reflux assessment. VL/Venous Duplex US, Unilateral Interpretation Summary Deep veins of the right lower extremity are patent and compressible segmentally . There is no evidence of right lower extremity deep vein thrombosis. The right great saphenous vein appears patent a nd compressible segmentally. Positive for reflux in the right great saphenous vein below the knee and access ory saphenous vein in the calf. Ordering Physician: Maria Ines Sutton Referring Physician: Kamar Sanchez Performed By: Rachelle Lewis RVT
== END | disposition home or self-care (01) ==
LOC: CVS 14:47
PROVIDERS: PCP Family Medicine; Referring Provider Physician Assistant; Visit Provider Physician Assistant
DX: M79.604 Pain in right leg (principal); G89.29 Other chronic pain; R25.2 Cramp and spasm
CPT/HCPCS: 93971